=== PATIENT | male | born 1930 | race Caucasian/White ===

== ENCOUNTER 2017-01-30 20:15 | Inpatient (IN) ==
[2017-01-30] MEDS ORDERED: 0.9 % Sodium Chloride 1,000 ML IVC ONE (20:22)
--- NOTE | 2017-01-30 21:00 | Emergency Department Note ---
Disposition Clinical Impression: Upper GI bleed, Anemia, Dehydration, Elevated serum creatinine, Thrombocytopenia, Prostate cancer, Generalized weakness, Transaminitis, Bundle branch block Disposition: Admitted As Inpatient Condition: Critical Referrals: Raúl Owusu MD [Primary Care Provider] - Forms: ED Satisfaction Letter Time of Disposition: 22:23 Weakness HPI - General Chief complaint: ED GI Bleed Stated complaint: weakness/pale Time Seen by Provider: 01/30/17 20:22 Source: patient, family, EMS Nursing Notes Reviewed: Yes Vital Signs Reviewed: Yes - History of Present Illness HPI Narrative: 86-year-old male presents emergency room for weakness. He lives at home with his . Reports to EMS is that the patient had been throwing up some chocolate syrup-appearing vomit for the past few days. The states he has had a poor appetite and has not been eating much. He said decreased bowel movements as well. His been no reports of any chest pain or shortness of breath or abdominal pain. 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 No documented fevers. States he feels more weak than normal. Has not had appetite at all. Pt Subjective Complaint: generalized weakness/fatigue Onset (ago): day(s) Duration: constant Location: generalized Migration: none Pain Severity: none Pain Scale: 0 - Related Data Allergies Allergy/AdvReac Type Severity Reaction Status Date / Time No Known Allergies Allergy Verified 01/30/17 20:24 Constitutional: Reports: weakness. Denies: chills Cardiovascular: Denies: chest pain, palpitations Respiratory: Denies: cough, dyspnea Gastrointestinal: Reports: nausea, vomiting, hematemesis Genitourinary: Denies: dysuria, frequency Musculoskeletal: Reports: as per HPI Integumentary: Reports: as per HPI Neurological: Reports: as per HPI Psychiatric: Reports: as per HPI Endocrine: Reports: as per HPI Hematological/Lymphatic: Reports: as per HPI Past Medical History - Past Medical History Medical history: Reports: other Psychiatric history: Reports: no psych history - Social History Smoking Status: Unknown if ever smoked Smokeless Tobacco Status: No Alcohol use: Reports: none Drug use: Reports: none Physical Exam - General General appearance: alert, in no apparent distress - Head Head exam: atraumatic, normocephalic - Eye Eye exam: Present: other (Pale conjunctiva) - Neck Neck exam: Present: normal inspection - Chest Chest inspection: Present: normal inspection, symmetric chest wall rise - Respiratory Respiratory exam: Present: normal lung sounds bilaterally - Cardiovascular Cardiovascular exam: Present: normal rhythm, tachycardia - Abdominal Exam Abdominal exam: Present: soft, Non-Tender, normal bowel sounds. Absent: tenderness, distention, guarding, rebound - Extremities Exam Extremities exam: Present: normal inspection - Expanded Lower Extremity Exam Hip/Pelvis exam: Present: normal inspection - Back Exam Back exam: Present: normal inspection - Neurological Exam Neurological exam: Present: alert, oriented X3 - Psychiatric Psychiatric exam: Present: normal affect, normal mood - Skin Skin exam: Present: other (Pale color) Course Course Narrative: Patient was found to have what appears to be an upper GI bleed likely from a gastric ulcer. We placed an NG tube down him to see exactly what we are getting out and it was dark colored coffee-ground contents. His hemoglobin was down to 7.3. His platelets were also low. I started him on a Protonix drip. I have ordered 2 units of blood to be transfused. He is not having any abdominal pain. I held off on any imaging of his abdomen. He does have a known history of prostate cancer with bony metastasis per the . I was unable to locate any reports in the computer system about this. He does have some nonspecific LFT elevation. The alkaline phosphatase is elevated which could be seen with advanced prostate metastatic bony destruction. Spoke with the hospitalist team. We will admit to their service. He is hemodynamically stable. I also gave him a liter of fluid. His heart rates running around 100 at this time. He has no elevated white blood cell count. Vital Signs Temperature 97.5 F L 01/30/17 20:17 Pulse Rate 114 01/30/17 20:17 Respiratory Rate 22 01/30/17 20:17 Blood Pressure 132/67 01/30/17 20:17 O2 Sat by Pulse Oximetry 96 01/30/17 20:17 Temperature 97.5 F L 01/30/17 20:17 Pulse Rate 114 01/30/17 20:17 Respiratory Rate 22 01/30/17 20:17 Blood Pressure 132/67 01/30/17 20:17 O2 Sat by Pulse Oximetry 96 01/30/17 20:17 Oxygen Delivery Oxygen Delivery Nasal Cannula Weakness - Medical Records Medical records reviewed: Yes I reviewed the patient's medical records. - Lab Data Lab results reviewed: Yes I reviewed the patient's lab results. Result diagrams: 01/30/17 21:06 01/30/17 21:06 Lab Results 01/30/17 01/30/17 01/30/17 Range/Units 21:06 21:06 21:06 WBC 7.8 (4.3-11.1) K/mcL RBC 2.47 L (4.19-5.50) M/mcL Hgb 7.3 L (12.9-16.9) g/dL Hct 22.7 L (37.5-50.1) % MCV 91.9 (83.0-100.0) fL MCH 29.6 (28.0-33.3) pg MCHC 32.2 (31.6-35.5) g/dL RDW 15.9 H (11.5-14.5) % Plt Count 86 L (140-400) K/mcL MPV 10.0 (9.4-12.4) fL Immature Gran % 16.4 H (0-4) % Seg Neutrophils % 49.9 % Lymphocytes % 21.0 % Monocytes % 11.1 % Eosinophils % 0.6 % Basophils % 1.0 % Neutrophils # 3.9 (1.6-8.9) K/mcL Lymphocytes # 1.6 (0.6-4.6) K/mcL Monocytes # 0.9 (0.0-1.3) K/mcL Eosinophils # 0.1 (0.0-0.6) K/mcL Basophils # 0.1 (0.0-0.2) K/mcL Nucleated RBCs/100 WBC 5.6 H (0) /100 WBC Platelet Estimate Decreased L (Normal) Immature Plt Fraction 2.2 (1.1-6.1) % Polychromasia 1+ A (Not Present) PT (9.4-12.1) Seconds INR APTT (26.0-36.0) Seconds Sodium 142 (136-145) mEq/L Potassium 3.8 (3.5-4.5) mEq/L Chloride 110 H (98-109) mEq/L Carbon Dioxide 19 (19-29) mEq/L BUN 87 H (8-26) mg/dL Creatinine 2.44 H (0.72-1.25) mg/dL Est GFR ( Amer) 31 L (> 60) Est GFR (Non-Af Amer) 25 L (> 60) BUN/Creatinine Ratio 36 H (6-26) Glucose 145 H (70-99) mg/dL Calculated Osmolality 323 H (280-300) Lactic Acid 0.9 (0.5-2.2) mmol/L Calcium 8.3 L (8.6-10.8) mg/dL Magnesium 1.9 (1.6-2.6) mg/dL Total Bilirubin 0.9 (0.2-1.2) mg/dL AST 137 H (5-34) Units/L ALT 98 H (0-55) Units/L Alkaline Phosphatase 543 H (38-126) Units/L Troponin I (0-0.03) ng/mL Serum Total Protein 6.5 (6.0-8.3) g/dL Albumin 2.3 L (3.5-5.0) g/dL Globulin 4.2 H (2.4-3.5) g/dL Albumin/Globulin Ratio 0.5 L (1.1-2.2) Lipase 15 (8-78) Units/L Urine Color (Yellow) Urine Clarity (Clear) Urine pH (5.0-8.0) pH Units Ur Specific Gould (1.010-1.025) Urine Protein (Neg-Trace) mg/dL Urine Glucose (UA) (Normal) mg/dL Urine Ketones (Negative) mg/dL Urine Blood (Negative) Urine Nitrite (Negative) Urine Bilirubin (Negative) Urine Urobilinogen (Normal) mg/dL Ur Leukocyte Esterase (Negative) 01/30/17 01/30/17 01/30/17 Range/Units 21:06 21:06 21:27 WBC (4.3-11.1) K/mcL RBC (4.19-5.50) M/mcL Hgb (12.9-16.9) g/dL Hct (37.5-50.1) % MCV (83.0-100.0) fL MCH (28.0-33.3) pg MCHC (31.6-35.5) g/dL RDW (11.5-14.5) % Plt Count (140-400) K/mcL MPV (9.4-12.4) fL Immature Gran % (0-4) % Seg Neutrophils % % Lymphocytes % % Monocytes % % Eosinophils % % Basophils % % Neutrophils # (1.6-8.9) K/mcL Lymphocytes # (0.6-4.6) K/mcL Monocytes # (0.0-1.3) K/mcL Eosinophils # (0.0-0.6) K/mcL Basophils # (0.0-0.2) K/mcL Nucleated RBCs/100 WBC (0) /100 WBC Platelet Estimate (Normal) Immature Plt Fraction (1.1-6.1) % Polychromasia (Not Present) PT 18.0 H (9.4-12.1) Seconds INR 1.6 APTT 28.3 (26.0-36.0) Seconds Sodium (136-145) mEq/L Potassium (3.5-4.5) mEq/L Chloride (98-109) mEq/L Carbon Dioxide (19-29) mEq/L BUN (8-26) mg/dL Creatinine (0.72-1.25) mg/dL Est GFR ( Amer) (> 60) Est GFR (Non-Af Amer) (> 60) BUN/Creatinine Ratio (6-26) Glucose (70-99) mg/dL Calculated Osmolality (280-300) Lactic Acid (0.5-2.2) mmol/L Calcium (8.6-10.8) mg/dL Magnesium (1.6-2.6) mg/dL Total Bilirubin (0.2-1.2) mg/dL AST (5-34) Units/L ALT (0-55) Units/L Alkaline Phosphatase (38-126) Units/L Troponin I 0.15 H* (0-0.03) ng/mL Serum Total Protein (6.0-8.3) g/dL Albumin (3.5-5.0) g/dL Globulin (2.4-3.5) g/dL Albumin/Globulin Ratio (1.1-2.2) Lipase (8-78) Units/L Urine Color Yellow (Yellow) Urine Clarity Cloudy A (Clear) Urine pH 6.0 (5.0-8.0) pH Units Ur Specific Gould 1.015 (1.010-1.025) Urine Protein 30 H (Neg-Trace) mg/dL Urine Glucose (UA) Normal (Normal) mg/dL Urine Ketones Negative (Negative) mg/dL Urine Blood Trace H (Negative) Urine Nitrite Negative (Negative) Urine Bilirubin Negative (Negative) Urine Urobilinogen Normal (Normal) mg/dL Ur Leukocyte Esterase Large H (Negative) - Radiology Data Radiology results reviewed: Yes I reviewed the patient's radiology results. - EKG Data EKG attestation: Yes I reviewed and interpreted this EKG. EKG results narrative: EKG shows a rate of 111. Sinus tachycardia. Appears to have a left bundle- branch block. OK interval 195. QRS 139. QTC 421. Critical Care Time Critical Care Time: Yes Total Critical Care Time: 40 Attestation: Total critical care time was 40 minutes. Time was spent in medical management as well as fluid resuscitation and anemia requiring a blood transfusion.
[2017-01-30 21:17] LABS: Red Cell Distribution Width 15.9 % (11.5-14.5)
[2017-01-30 21:19] LABS: Basophils # 0.1 K/mcL (0.0-0.2); Eosinophils # 0.1 K/mcL (0.0-0.6); Eosinophils % 0.6 %; Hematocrit 22.7 % (37.5-50.1); Immature Granulocytes % 16.4 % (0-4); Immature Platelets 2.2 % (1.1-6.1); Lymphocytes # 1.6 K/mcL (0.6-4.6); Mean Corpuscular HGB Conc 32.2 g/dL (31.6-35.5); Mean Corpuscular Hemoglobin 29.6 pg (28.0-33.3); Mean Corpuscular Volume 91.9 fL (83.0-100.0); Monocytes # 0.9 K/mcL (0.0-1.3); Monocytes % 11.1 %; Neutrophils # 3.9 K/mcL (1.6-8.9); Nucleated Red Blood Cells 5.6 /100 WBC (0); Red Blood Count 2.47 M/mcL (4.19-5.50); Segmented Neutrophils % 49.9 %
[2017-01-30 21:27] LABS: INR 1.6
[2017-01-30 21:30] LABS: Activated Partial Thrombo Time 28.3 Seconds (26.0-36.0)
[2017-01-30 21:33] LABS: Albumin 2.3 g/dL (3.5-5.0); Albumin/Globulin Ratio 0.5 (1.1-2.2); Bilirubin,Total 0.9 mg/dL (0.2-1.2); Calcium 8.3 mg/dL (8.6-10.8); Globulin 4.2 g/dL (2.4-3.5); Magnesium 1.9 mg/dL (1.6-2.6); Potassium 3.8 mEq/L (3.5-4.5); Total Protein 6.5 g/dL (6.0-8.3)
[2017-01-30 21:48] LABS: Bilirubin,Urine Negative (Negative); Blood,Urine Trace (Negative); Clarity,Urine Cloudy (Clear); Color,Urine Yellow (Yellow); Glucose,Urine (UA) Normal (Normal); Ketones,Urine Negative (Negative); Leukocyte Esterase,Urine Large (Negative); Nitrite,Urine Negative (Negative); Protein,Urine 30 mg/dL (Neg-Trace); Specific Gravity,Urine 1.015 (1.010-1.025); Urobilinogen,Urine Normal (Normal)
[2017-01-30 22:00] LABS: Hemoglobin 7.3 g/dL (12.9-16.9); Platelet Count 86 K/mcL (140-400)
[2017-01-30 22:03] LABS: Polychromasia 1+ (Not Present)
[2017-01-30 22:04] LABS: Platelet Estimate Decreased (Normal)
[2017-01-30 22:04] LABS: Squamous Epithelial Cell,Urine None Seen per lpf (None-Few); WBC,Urine TNTC per hpf (0-3)
[2017-01-30] MEDS ORDERED: Pantoprazole 40 MG VIAL IVP ONE (22:13)
[2017-01-30] MEDS ORDERED: Pantoprazole 40 MG in 0.9 % Sodium Chloride Mini Bag 100 ML IVC SCH (22:15)
[2017-01-30 22:17] LABS: RBC,Urine 0-3 per hpf (0-3)
[2017-01-30 22:18] LABS: Bacteria,Urine Few per hpf (None-Few); Hyaline Casts,Urine Few per lpf (None-Few)
[2017-01-30] MEDS ORDERED: Ringers Solution, Lactated 1,000 ML IVC SCH (23:45)
[2017-01-30] MEDS ORDERED: Naloxone 0.4 MG/ML INJ IVP PRN (23:51)
--- NOTE | 2017-01-30 23:59 | Internal Med History&Physical ---
Date of Encounter: 01/30/17 Time of Encounter: 23:57 Assessment and Plan (1) Upper GI bleed Current visit: Yes Status: Acute trend H/H q6, 2 prbc ordered by the ED, consult GI, protonix gtt, IVF, conservative management for now. Has NGT to low intermittent suction (2) Anemia Current visit: Yes Status: Acute symptomatic anemia. To get pRBC. 2/2 to GI loss. GI assisting Qualifiers: Other causes of anemia: acute posthemorrhagic Qualified Code(s): D62 - Acute posthemorrhagic anemia (3) Prostate cancer Current visit: Yes Status: Acute continue outpatient therapy upon recovery (4) Generalized weakness Current visit: Yes Status: Acute supportive care, treat GIB, transfuse. PT eval when GIB resolve for HHC vs SNF ? Internal Medicine - H&P: HPI Chief complaint: weakness, coffee grounds emesis History of present illness: Mr. Nunez is a 86 year old male with hx of prostate ca on LHRH/casodex, HLN, HTN who presents with 2 days hx of coffee grounds emesis with no improving or worsening factors. He has apparently been gradually weaker in the last 2-3 months but symptoms were more notable 2-3 weeks ago. He denies any blood thinners, NSAIDs or hx of GIB. He lives with and is highly functional at baseline. Past Med Surg Social Fam HX - Past Medical History Medical history: cancer, hypertension, other Psychiatric history: no psych history - Social History Smoking Status: Never smoker Smokeless Tobacco Status: No Alcohol use: none Drug use: none Internal Medicine - H&P: Meds Allergies No Known Allergies Allergy (Verified 01/30/17 20:24) All Systems PM: A 10-system review of systems was performed and is negative for pertinent findings except as documented above in the HPI. Review of systems: ROS 14 point review of systems reviewed as best as possible given presentation. Pertinent positive or negative as per HPI or otherwise reviewed as negative - Constitutional Vitals: Temp Pulse Resp BP Pulse Ox 98.3 F 94 16 133/60 93 01/30/17 23:39 01/30/17 23:39 01/30/17 23:39 01/30/17 23:39 01/30/17 23:39 Exam: General - AAO x 3 Psych - Appropriate affect/speech. No agitation Eyes - CLYDE. Eye lids intact. No scleral icterus ENT - Oral mucosa pink, dentition intact. External ear clear/dry/intact. No thyromegaly Lymphatics - No cervical/inguinal lympadenopathy Neuro - No gross peripheral or central neuro deficits with intact CN 2-12 exam Heart - Sinus. RRR. S1 and S2 present. No added HS/murmurs appreciated. No elevated JVD appreciated. No calf swellings/erythema Lung - Adequate air entry b/l, No crackes/wheezes appreciated GI - NG tube present, Soft, non-tender. No hepatosplenomegaly/ascities. BS+ - No CVA/suprapubic tenderness or palpable bladder distension Skin - Intact. No rash/petechiae/ecchymosis. Warm extremities MSK - Joints with normal ROM. No joint swellings Internal Med - H&P Results - Labs CBC & Chem 7: 01/30/17 21:06 01/30/17 21:06 - VTE Reasons for not Prescribing Prophylaxis: Medical contraindication
[2017-01-31] MEDS: Pantoprazole 40 MG in 0.9 % Sodium Chloride Mini Bag 100 ML IVC SCH ×5 (00:17→21:52)
[2017-01-31 01:59] LABS: Calcium 8.4 mg/dL (8.6-10.8); Potassium 3.7 mEq/L (3.5-4.5)
[2017-01-31] MEDS ORDERED: Haloperidol Lactate 5 MG/ML VIAL ONE (04:28)
[2017-01-31] MEDS: Haloperidol Lactate 5 MG/ML VIAL IVP ONE ×2 (04:40→04:43)
[2017-01-31 08:38] LABS: Hemoglobin 8.7 g/dL (12.9-16.9); Red Cell Distribution Width 15.9 % (11.5-14.5)
[2017-01-31 08:40] LABS: Eosinophils # 0.1 K/mcL (0.0-0.6); Hematocrit 26.7 % (37.5-50.1); Mean Corpuscular HGB Conc 32.6 g/dL (31.6-35.5); Mean Corpuscular Hemoglobin 29.2 pg (28.0-33.3); Mean Corpuscular Volume 89.6 fL (83.0-100.0); Mean Platelet Volume 10.1 fL (9.4-12.4); Nucleated Red Blood Cells 6.5 /100 WBC (0); Red Blood Count 2.98 M/mcL (4.19-5.50)
--- NOTE | 2017-01-31 08:48 | Gastroenterology Consult Note ---
<Vivienne Oneil - Last Filed: 01/31/17 13:45> Date of Encounter: 01/31/17 Time of Encounter: 13:35 - Assessment and plan (1) Upper GI bleed Current Visit: Yes Status: Acute Assessment and plan: hgb 7.3 on admission, 2 units PRBC transfused. EGD to r/o varices, esophagitis, gastritis, duodenitis, PUD, MW tear, tumor, polyp, AVM. NG in place, continue PPI gtt. (2) Anemia Current Visit: Yes Status: Acute Assessment and plan: monitor H & H, transfuse as appropriate. Qualifiers: Anemia type: other cause Other causes of anemia: acute posthemorrhagic Qualified Code(s): D62 - Acute posthemorrhagic anemia (3) Thrombocytopenia Current Visit: Yes Status: Acute Assessment and plan: r/o underlying cirrhosis. US liver (4) Prostate cancer Current Visit: Yes Status: Chronic (5) Transaminitis Current Visit: Yes Status: Acute Assessment and plan: US negative for findings consistent with cirrhosis. Holding on EGD results. Liver w/u ordered. - Time Spent With Patient Total time spent is greater than 50% in coordination of care (as documented) at patient's floor/unit and/or counseling patient: less than 15 minutes GI History of Present Illness - Data of Consult Patient: new to practice Consult date: 01/31/17 Requesting Physician: Komal Isbell MD - Consult Narrative Reason for consult: hematemesis History of present illness: Mr. Nunez is a 86 year old male Patient was found to have what appears to be an upper GI bleed likely from a gastric ulcer. We placed an NG tube down him to see exactly what we are getting out and it was dark colored coffee-ground contents. His hemoglobin was down to 7.3. His platelets were also low. I started him on a Protonix drip. I have ordered 2 units of blood to be transfused. He is not having any abdominal pain. I held off on any imaging of his abdomen. He does have a known history of prostate cancer with bony metastasis per the . I was unable to locate any reports in the computer system about this. He does have some nonspecific LFT elevation. The alkaline phosphatase is elevated which could be seen with advanced prostate metastatic bony destruction. Patient is not a good historian, was not present at the time of my exam. Patient unclear how long he has been vomiting black, denies black stools or blood noted in stools prior to admission. NG remains in place with black drainage noted. Per RN, emptied approximately 400 mls earlier today. Denies abd pain, dysphagia or increase in acid reflux. Colonoscopy: None noted EGD: None noted Past Med Surg Social Fam HX - Past Medical History Medical history: cancer, hypertension, other Psychiatric history: no psych history - Social History Smoking Status: Never smoker Smokeless Tobacco Status: No Alcohol use: none Drug use: none - Gastrointestinal NSAID use: None noted Anticoagulation Use: None noted Number of BM Per Day: qod Gastrointestinal: Present: coffee ground emesis - Constitutional Constitutional: fatigue - EENT Eyes: as per HPI Ears: Present: as per HPI Nose, mouth and throat: Present: as per HPI - Cardiovascular Cardiovascular ROS: Present: as per HPI - Respiratory Respiratory IM: Present: as per HPI - Neurological ROS Neurological GI: Present: weakness - Hematologic/Lymphatic Hematologic/Lymphatic pediatric: Present: as per HPI - Musculoskeletal Musculoskeletal ROS GI: Present: as per HPI - Integumentary Integumentary GI: Present: as per HPI - Psychiatric ROS Psychiatric GI: Present: as per HPI - Endocrine Endocrine IM: Present: as per HPI - Constitutional Vitals: Temp Pulse Resp BP Pulse Ox 97.3 F L 95 22 144/67 93 01/31/17 07:23 01/31/17 07:23 01/31/17 07:23 01/31/17 07:23 01/31/17 07:23 General appearance: Present: cooperative, A&O X 3, pleasant, no acute distress - Head Head exam: Present: atraumatic, normocephalic - Eye Eye exam: Present: normal appearance, sclera anicteric - ENT ENT exam: Present: mucous membranes moist - Neck Neck exam general surgery: Present: normal inspection, trachea midline - Respiratory Respiratory exam: Present: CTAB - Cardiovascular Cardiovascular exam: Present: RRR, +S1, +S2 - GI/Abdominal GI/Abdominal exam: Present: normal bowel sounds, soft, no peritoneal signs - Rectal Rectal exam: Present: deferred - Extremities Exam Extremities exam: Present: warm - Neurological Exam Neurological exam: Present: no focal deficits - Psychiatric Psychiatric exam: Present: normal affect, normal mood - Skin Skin exam: Present: dry, intact, normal color, warm Results - Labs CBC & Chem 7: 01/31/17 07:52 01/31/17 01:08 Labs: Last Result Calcium 8.4 mg/dL (8.6-10.8) L 01/31/17 01:08 Troponin I 0.18 ng/mL (0-0.03) H* 01/31/17 01:08 Entire Visit Hgb 7.3 g/dL (12.9-16.9) L 01/30/17 21:06 Hct 22.7 % (37.5-50.1) L 01/30/17 21:06 PT 18.0 Seconds (9.4-12.1) H 01/30/17 21:06 Total Bilirubin 0.9 mg/dL (0.2-1.2) 01/30/17 21:06 AST 137 Units/L (5-34) H 01/30/17 21:06 ALT 98 Units/L (0-55) H 01/30/17 21:06 Lipase 15 Units/L (8-78) 01/30/17 21:06 - ABG ABG results: PT/INR, D-dimer PT 18.0 Seconds (9.4-12.1) H 01/30/17 21:06 - Impressions Impressions [facility] X-Ray 01/31/17 01:53 IMPRESSION: Nasogastric tube in good position, with tip in the mid gastric body. D/ / Cody Torres MD / Cody Torres MD Interpreting Provider: Cody Torres MD Consult Discharge Plan - Plan Referrals: Raúl Owusu MD [Primary Care Provider] - (sent web request on 01-31-17 @ [id number]) <Jordyn Rojas - Last Filed: 01/31/17 16:43> Date of Encounter: 01/31/17 Time of Encounter: 14:00 - Time Spent With Patient Total time spent is greater than 50% in coordination of care (as documented) at patient's floor/unit and/or counseling patient: GI History of Present Illness - Data of Consult Requesting Physician: Komal Isbell MD - Consult Narrative History of present illness: Mr. Nunez is a 86 year old male - Constitutional Vitals: Temp Pulse Resp BP Pulse Ox 98.2 F 104 20 142/70 95 01/31/17 15:58 01/31/17 15:58 01/31/17 15:58 01/31/17 15:58 01/31/17 15:58 Results - Labs CBC & Chem 7: 01/31/17 14:40 01/31/17 01:08 Labs: Last Result Calcium 8.4 mg/dL (8.6-10.8) L 01/31/17 01:08 Ferritin 9450 ng/ml (22-275) H 01/31/17 14:40 Troponin I 0.14 ng/mL (0-0.03) H* 01/31/17 14:40 Gastric Occult Blood Positive (Negative) A 01/30/17 21:56 Entire Visit Hgb 9.1 g/dL (12.9-16.9) L 01/31/17 14:40 Hct 28.0 % (37.5-50.1) L 01/31/17 14:40 PT 18.0 Seconds (9.4-12.1) H 01/30/17 21:06 Ferritin 9450 ng/ml (22-275) H 01/31/17 14:40 Total Bilirubin 0.9 mg/dL (0.2-1.2) 01/31/17 07:52 AST 107 Units/L (5-34) H 01/31/17 07:52 ALT 92 Units/L (0-55) H 01/31/17 07:52 Lipase 15 Units/L (8-78) 01/30/17 21:06 - ABG ABG results: PT/INR, D-dimer PT 18.0 Seconds (9.4-12.1) H 01/30/17 21:06 - Impressions Impressions KUB X-Ray 01/31/17 01:53 IMPRESSION: Nasogastric tube in good position, with tip in the mid gastric body. D/ / Cody Torres MD / Cody Torres MD Interpreting Provider: Cody Torres MD Liver Ultrasound 01/31/17 10:00 IMPRESSION: 1. Normal size and contour of the liver suggests against cirrhosis. However, the liver is diffusely echogenic in appearance, which may suggest either diffuse fatty infiltration or chronic liver disease. If cirrhosis remains of clinical concern, consider a liver biopsy. 2. Cholelithiasis, without sonographic evidence of cholecystitis. 3. Mild nonspecific right hydronephrosis without demonstrable cause. 4. Normal sonographic appearance of the common bile duct and pancreas. D/ : / 01/31/2017 11:40:48 Davin Junior MD / [facility] Interpreting Provider: Davin Junior MD - Attending Attestation I examined this patient and my medical decision-making was reviewed with the Resident Physician. I agree with the documented findings, disposition and treatment plan as described except to the extent set forth below. Patient with coffee-ground emesis and melena currently NG output is dark green in color. Recommend d/c the NG follow H&H and EGD in the morning can start on clear liquid
[2017-01-31 08:55] LABS: Platelet Count 78 K/mcL (140-400)
--- NOTE | 2017-01-31 09:01 | Internal Med Progress Note ---
Date of Encounter: 01/31/17 Time of Encounter: 08:58 - Assessment and plan (1) Upper GI bleed Current Visit: Yes Status: Acute Assessment and plan: Hb 7.3..was given 2 U PRBC cont close monitoring of Hb / Hct Q6hr GI consulted Scheduled for EGD today cont IV fluids - change to NS @ 100 ml/hr cont PPI gtt (2) Anemia Current Visit: Yes Status: Acute Assessment and plan: due to GI bleed Qualifiers: Anemia type: other cause Other causes of anemia: acute posthemorrhagic Qualified Code(s): D62 - Acute posthemorrhagic anemia (3) Elevated troponin I level Current Visit: Yes Status: Acute Assessment and plan: Mostly due to demand ischemia will get EKG now Troponin started trending now Cont monitoring Troponin will get 2 D Echo no further work up needed Held ASA due to GI bleed (4) Acute kidney failure Current Visit: Yes Status: Acute Assessment and plan: due to dehydration / hypovolemia with GI bleed cont IV hydration Qualifiers: Qualified Code(s): N17.9 - Acute kidney failure, unspecified (5) Thrombocytopenia Current Visit: Yes Status: Acute Assessment and plan: could be due to his Prostate CA with possible mets cont close monitoring (6) Acute hyperactive delirium due to multiple etiologies Current Visit: Yes Status: Acute Assessment and plan: Multifactorial - could be due to underline dementia + Metabolic encephalopathy with NILAM / GI bleed + possible metastatic disease did mention about his fogetfullness in last 2-3 months also she did mention his urologist did bone scan ? vs PET scan recently and mentioned metastasis all over the body so will try to get medical records from Dr. Pelayo Urologist from [facility] Also will obtain medical records from his regular PCP Depending on those reports, if needed will get CT of head with no contrast (7) Prostate cancer Current Visit: Yes Status: Chronic Assessment and plan: will get records from Urologist (8) DVT prophylaxis Current Visit: Yes Status: Acute Assessment and plan: SCD's only - Subjective Interval history: Mr. Nunez is a 86 year old male with hx of prostate ca on LHRH/casodex, HLN, HTN who presents with 2 days hx of coffee grounds emesis with no improving. He has apparently been gradually weaker, confused, rapidly declining in the last 2- 3 months but symptoms were more notable 2-3 weeks ago. Denied any blood thinners, NSAIDs or hx of GIB. He lives with and is highly functional at baseline. Currently pt has NG tube placed in, still has coffee ground secretions through NG tube. Pt is alert, awake and oriented to self only. seems confused and demented - Constitutional Vitals: Temp Pulse Resp BP Pulse Ox 97.3 F L 91 22 144/67 93 01/31/17 07:23 01/31/17 08:44 01/31/17 07:23 01/31/17 07:23 01/31/17 07:23 General appearance: Present: A&O X 1, no acute distress - Head Head exam: Present: atraumatic, normal inspection - Neck Neck exam general surgery: Present: normal inspection, supple - Respiratory Respiratory exam: Present: decreased breath sounds. Absent: rales, respiratory distress, rhonchi, wheezes - Cardiovascular Cardiovascular exam: Present: RRR, +S1, +S2. Absent: systolic murmur - GI/Abdominal GI/Abdominal exam: Present: normal bowel sounds, soft. Absent: distended, guarding, rebound, rigid, tenderness - Extremities Exam Extremities exam: Absent: calf tenderness, pedal edema, tenderness - Neurological Exam Neurological exam: Present: altered Internal Medicine: Result - Labs CBC & Chem 7: 01/31/17 07:52 01/31/17 01:08 Labs: Short CBC 01/31/17 Range/Units 07:52 WBC 7.4 (4.3-11.1) K/mcL Hgb 8.7 L (12.9-16.9) g/dL Hct 26.7 L (37.5-50.1) % Plt Count 78 L (140-400) K/mcL BMP 01/31/17 01:08 Sodium 144 Potassium 3.7 Chloride 113 H Carbon Dioxide 19 BUN 82 H Creatinine 2.15 H Glucose 125 H Calcium 8.4 L Cardiac Enzymes 01/31/17 Range/Units 01:08 Troponin I 0.18 H* (0-0.03) ng/mL - ABG Interpretation ABG results: PT/INR, D-dimer PT 18.0 Seconds (9.4-12.1) H 01/30/17 21:06 - Impressions Impressions KUB X-Ray 01/31/17 01:53 IMPRESSION: Nasogastric tube in good position, with tip in the mid gastric body. D/ / Cody Torres MD / Cody Torres MD Interpreting Provider: Cody Torres MD - VTE Reasons for not Prescribing Prophylaxis: Medical contraindication Consult Discharge Plan - Plan Referrals: Raúl Owusu MD [Primary Care Provider] -
[2017-01-31 09:03] LABS: Lymphocytes # 1.8 K/mcL (0.6-4.6); Monocytes # 0.4 K/mcL (0.0-1.3); Neutrophils # 4.3 K/mcL (1.6-8.9)
[2017-01-31 09:08] LABS: Platelet Estimate Slight Decrease (Normal); Polychromasia 1+ (Not Present)
[2017-01-31 12:19] LABS: Albumin 2.3 g/dL (3.5-5.0); Albumin/Globulin Ratio 0.5 (1.1-2.2); Bilirubin,Direct 0.4 mg/dL (0.0-0.5); Bilirubin,Indirect 0.5 mg/dL (0.0-1.2); Bilirubin,Total 0.9 mg/dL (0.2-1.2); Globulin 4.2 g/dL (2.4-3.5); Total Protein 6.5 g/dL (6.0-8.3)
[2017-01-31] MEDS: 0.9 % Sodium Chloride 1,000 ML IVC SCH ×2 (14:11→22:16)
[2017-01-31 15:07] LABS: Hemoglobin 9.1 g/dL (12.9-16.9)
--- NOTE | 2017-01-31 15:29 | Electrocardiograph Report ---
[address] [address] Test Date: 2017-01-30 Pat Name: Jareth Nunez Department: 104 Room: [facility] Gender: M Manager Life: YARITZA : 1930 Requested By: Lex Davenport Order Number: [id number] Reading MD: Lucero Wylie Measurements Intervals [place] Rate: 111 P: 44 [place]: 195 QRS: -22 QRSD: 139 T: 114 QT: 355 QTc: 421 Interpretive Statements SINUS TACHYCARDIA Left bundle branch block Electronically Signed On 01-31-2017 15:28:03 EDT by Lucero Wylie
--- NOTE | 2017-01-31 15:39 | Electrocardiograph Report ---
[place] [address] Test Date: 2017-01-31 Pat Name: Jareth Nunez Department: 110 Room: 04 Gender: M Vulnerability Assessment Analyst: BISI : 1930 Requested By: Sharif Perez Order Number: [id number] Reading MD: Lucero Wylie Measurements Intervals [place] Rate: 101 P: 74 [place]: 205 QRS: -46 QRSD: 148 T: 130 QT: 381 QTc: 439 Interpretive Statements SINUS TACHYCARDIA MARKED LEFT AXIS DEVIATION LEFT BUNDLE BRANCH BLOCK Electronically Signed On 01-31-2017 15:37:19 EDT by Lucero Wylie
[2017-01-31 15:41] LABS: Hepatitis B Surface Antigen Nonreactive (Nonreactive)
[2017-01-31] MEDS: *HR* LORazepam 0.5 MG TABLET PO PRN ×2 (17:24→21:58)
[2017-01-31] MEDS: *HR* Acetaminophen w/Cod 300-30 mg 1 TAB TABLET PO PRN (20:37)
[2017-01-31 21:13] LABS: Hematocrit 28.6 % (37.5-50.1)
[2017-01-31] MEDS: Ondansetron 4 MG/2 ML VIAL IVP PRN (21:52)
[2017-02-01] MEDS: 0.9 % Sodium Chloride 1,000 ML IVC SCH ×4 (00:07→10:37)
[2017-02-01] MEDS: Pantoprazole 40 MG in 0.9 % Sodium Chloride Mini Bag 100 ML IVC SCH ×3 (01:16→09:09)
[2017-02-01] MEDS ORDERED: Baclofen 10 MG TABLET PO PRN (03:01)
[2017-02-01 04:33] LABS: Red Cell Distribution Width 16.1 % (11.5-14.5)
[2017-02-01 04:35] LABS: Hematocrit 27.7 % (37.5-50.1); Immature Platelets 2.5 % (1.1-6.1); Mean Corpuscular HGB Conc 32.5 g/dL (31.6-35.5); Mean Corpuscular Hemoglobin 29.2 pg (28.0-33.3); Mean Corpuscular Volume 89.9 fL (83.0-100.0); Mean Platelet Volume 9.9 fL (9.4-12.4); Nucleated Red Blood Cells 6.4 /100 WBC (0); Red Blood Count 3.08 M/mcL (4.19-5.50)
[2017-02-01 04:38] LABS: INR 1.5; Prothrombin Time 16.5 Seconds (9.4-12.1)
[2017-02-01 04:39] LABS: Platelet Count 79 K/mcL (140-400)
[2017-02-01 04:46] LABS: Alanine Aminotransferase 68 Units/L (0-55); Albumin 2.3 g/dL (3.5-5.0); Albumin/Globulin Ratio 0.6 (1.1-2.2); Alkaline Phosphatase 546 Units/L (38-126); Aspartate Amino Transferase 61 Units/L (5-34); BUN/Creatinine Ratio 36 (6-26); Bilirubin,Total 0.9 mg/dL (0.2-1.2); Calcium 8.6 mg/dL (8.6-10.8); Carbon Dioxide 21 mEq/L (19-29); Chloride 112 mEq/L (98-109); Globulin 4.1 g/dL (2.4-3.5); Glucose 114 mg/dL (70-99); Osmolality,Calculated 309 (280-300); Potassium 2.9 mEq/L (3.5-4.5); Sodium 143 mEq/L (136-145); Total Protein 6.4 g/dL (6.0-8.3); eGFR For African Americans > 60 (> 60); eGFR For Non-African Americans 51 (> 60)
[2017-02-01 04:48] LABS: Blood Urea Nitrogen 48 mg/dL (8-26)
[2017-02-01 05:03] LABS: Lymphocytes # 1.4 K/mcL (0.6-4.6); Monocytes # 0.4 K/mcL (0.0-1.3); Neutrophils # 4.6 K/mcL (1.6-8.9)
[2017-02-01 05:04] LABS: Platelet Estimate Decreased (Normal)
[2017-02-01] MEDS ORDERED: *HR* Metoprolol 5 MG/5 ML VIAL IVP ONE ×4 (05:12→05:36)
[2017-02-01] MEDS ORDERED: 0.9 % Sodium Chloride 500 ML IVC ONE ×2 (06:03→06:29)
[2017-02-01 10:17] LABS: Hepatitis A Antibody IgM Nonreactive (Nonreactive); Hepatitis B Core IgM Nonreactive (Nonreactive); Hepatitis C Virus Antibody Nonreactive (Nonreactive)
--- NOTE | 2017-02-01 10:27 | Internal Med Progress Note ---
Date of Encounter: 02/01/17 Time of Encounter: 10:20 - Assessment and plan (1) Atrial fibrillation with RVR Current Visit: Yes Status: Acute Assessment and plan: Triggered by NSTEMI and Severe anemia cont Cadrizem gtt.. rate is still not well controlled due to his NSTEMI, he may get benefit with Amiodarone gtt, will consult cardiology for further eval 2 D Echo from y/d - LVEF normal, Indeterminate diastolic function. atypicla septal motion with BBB Held ASA / Anticoag due to GI bleed (2) Elevated troponin I level Current Visit: Yes Status: Acute Assessment and plan: Mostly due to demand ischemia EKG from y/d NSR with complete LBBB ( chronic ?? ) Troponin started trending now reviewed 2 D Echo Held ASA due to GI bleed Card consulted (3) Upper GI bleed Current Visit: Yes Status: Acute Assessment and plan: Hb improved to 9.0 2 U PRBC cont close monitoring of Hb / Hct GI consulted Scheduled for EGD today - which may post pone due to his A fib with RVR cont IV fluids - NS @ 100 ml/hr cont PPI gtt (4) Anemia Current Visit: Yes Status: Acute Assessment and plan: due to GI bleed Qualifiers: Anemia type: other cause Other causes of anemia: acute posthemorrhagic Qualified Code(s): D62 - Acute posthemorrhagic anemia (5) Acute respiratory failure with hypoxia Current Visit: Yes Status: Acute Assessment and plan: Due to anemia and deconditioning will get stat CXR too will place him on Duoneb Q4hr KISHORE (6) Acute kidney failure Current Visit: Yes Status: Acute Assessment and plan: due to dehydration / hypovolemia with GI bleed cont IV hydration Qualifiers: Qualified Code(s): N17.9 - Acute kidney failure, unspecified (7) Thrombocytopenia Current Visit: Yes Status: Acute Assessment and plan: could be due to his Prostate CA with possible mets cont close monitoring (8) Acute hyperactive delirium due to multiple etiologies Current Visit: Yes Status: Acute Assessment and plan: Multifactorial - could be due to underline dementia + Metabolic encephalopathy with NILAM / GI bleed + possible metastatic disease did mention about his forget fullness in last 2-3 months also she did mention his urologist did bone scan recently and mentioned metastasis all over the body Spoke to Urologist Dr. 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 Pelayo Urologist from [facility] Also will obtain medical records from his regular PCP (9) Prostate cancer Current Visit: Yes Status: Chronic Assessment and plan: will get records from Urologist (10) DVT prophylaxis Current Visit: Yes Status: Acute Assessment and plan: SCD's only - Subjective Interval history: Mr. Nunez is a 86 year old male with hx of prostate ca on LHRH/casodex, HLN, HTN who presents with 2 days hx of coffee grounds emesis with no improving. He has apparently been gradually weaker, confused, rapidly declining in the last 2- 3 months but symptoms were more notable 2-3 weeks ago. Denied any blood thinners, NSAIDs or hx of GIB. He lives with and is highly functional at baseline. NG tube d/c d y/d. Had one episode coffee ground emesis last night. Now pt is more alert, awake and Oriented to place, person and self. Denied any CP . Still on venturi mask. Pt went into A fib this morning with RVR. As per he did have an episode of A fib / Hr fluctuations in 2011 when he was in ICU. - Constitutional Vitals: Temp Pulse Resp BP Pulse Ox 97.9 F 126 20 123/83 96 02/01/17 10:16 02/01/17 10:16 02/01/17 10:16 02/01/17 10:16 02/01/17 10:16 General appearance: Present: A&O X 2, mild distress, answers questions appropriately - Head Head exam: Present: atraumatic, normal inspection - Neck Neck exam general surgery: Present: supple. Absent: lymphadenopathy, thyromegaly - Respiratory Respiratory exam: Present: decreased breath sounds, respiratory distress, wheezes, tachypnea. Absent: rales, rhonchi - Cardiovascular Cardiovascular exam: Present: irregular rhythm, +S1, +S2, tachycardia - GI/Abdominal GI/Abdominal exam: Present: normal bowel sounds, soft. Absent: rebound, rigid, tenderness - Extremities Exam Extremities exam: Present: pedal edema. Absent: calf tenderness, tenderness Internal Medicine: Result - Labs CBC & Chem 7: 02/01/17 04:03 02/01/17 04:03 Labs: Short CBC 01/31/17 01/31/17 02/01/17 Range/Units 14:40 20:50 04:03 WBC 7.2 (4.3-11.1) K/mcL Hgb 9.1 L 9.0 L 9.0 L (12.9-16.9) g/dL Hct 28.0 L 28.6 L 27.7 L (37.5-50.1) % Plt Count 79 L (140-400) K/mcL Neutrophils # 4.6 (1.6-8.9) K/mcL BMP 02/01/17 04:03 Sodium 143 Potassium 2.9 L Chloride 112 H Carbon Dioxide 21 BUN 48 H D Creatinine 1.34 H Glucose 114 H Calcium 8.6 Cardiac Enzymes 01/31/17 01/31/17 Range/Units 14:40 20:50 Troponin I 0.14 H* 0.10 H* (0-0.03) ng/mL Liver Function 01/31/17 02/01/17 Range/Units 07:52 04:03 Total Bilirubin 0.9 0.9 (0.2-1.2) mg/dL Direct Bilirubin 0.4 (0.0-0.5) mg/dL AST 107 H 61 H (5-34) Units/L ALT 92 H 68 H (0-55) Units/L Alkaline Phosphatase 511 H 546 H (38-126) Units/L Albumin 2.3 L 2.3 L (3.5-5.0) g/dL - ABG Interpretation ABG results: PT/INR, D-dimer PT 16.5 Seconds (9.4-12.1) H 02/01/17 04:03 - Impressions Impressions Liver Ultrasound 01/31/17 10:00 IMPRESSION: 1. Normal size and contour of the liver suggests against cirrhosis. However, the liver is diffusely echogenic in appearance, which may suggest either diffuse fatty infiltration or chronic liver disease. If cirrhosis remains of clinical concern, consider a liver biopsy. 2. Cholelithiasis, without sonographic evidence of cholecystitis. 3. Mild nonspecific right hydronephrosis without demonstrable cause. 4. Normal sonographic appearance of the common bile duct and pancreas. D/ /31/2017 11:40:48 Davin Junior MD / [facility] Interpreting Provider: Davin Junior MD - VTE Reasons for not Prescribing Prophylaxis: Medical contraindication Documentation of Mechanical Device: Intermittent pneumatic compression device Consult Discharge Plan - Plan Referrals: Raúl Owusu MD [Primary Care Provider] - 02/07/17 1:15 pm ()
--- NOTE | 2017-02-01 11:06 | Cardiology Consult Note ---
Date of Encounter: 02/01/17 Time of Encounter: 11:45 Assessment and Plan (1) Atrial fibrillation with RVR Current Visit: Yes Status: Acute Patient with known history of atrial fibrillation. Was previously on Coumadin per medical record but not recently Currently the patient is hemodynamically stable. He has had some hypotension today but this is in the setting of GI bleed. Hypotension has resolved. currently he is alert and hemodynamically stable. Recommendations: Resume cardizem gtt with goal rat of < 100. Continue fluid resuscitation and blood transfusion as needed. Replete potassium. Patient dose have CHADSVASC of 4 but would not recommend any anticoagulation at this time given his GI bleed. (2) Elevated troponin Current Visit: Yes Status: Acute in the setting of symptomatic anemia,NILAM, and Afib with RVR. Ongoing GI bleed. Likely demand ischemia. TTE was poor study but grossly LVEF appeared normal. Would recommend medical management at this time. Do not recommend any invasive procedures at this time. (3) LBBB (left bundle branch block) Current Visit: Yes Status: Chronic (4) CAD (coronary artery disease) Current Visit: Yes Status: Acute patient last had LHC in 2011 which revealed: Left Anterior Descending Artery - There was a 50 to 60% discrete ostial stenosis in the proximal left anterior descending artery. There was a 60% discrete stenosis in the proximal left anterior descending artery. Left Circumflex Artery - There was a 50% discrete stenosis in the proximal left circumflex artery. Right Coronary Artery - The right coronary artery was dominant to the posterior circulation. There was a 30% discrete stenosis in the mid right coronary artery. Impression: Moderate two vessel coronary artery disease. 50 to 60% ostial stenosis and 60% stenosis in the proximal left anterior descending artery. 50% stenosis in the proximal left circumflex artery. The left ventricular ejection fraction was 65%. The overall left ventricular systolic function was normal. Recommend resuming ASA after GI bleed has resolved and Ok with GI. Can resume statin when able to take PO medications again. Qualifiers: Qualified Code(s): I25.10 - Atherosclerotic heart disease of [place] coronary artery without angina pectoris (5) GI bleed Current Visit: Yes Status: Acute management per GI and primary team. Qualifiers: Qualified Code(s): K92.2 - Gastrointestinal hemorrhage, unspecified (6) Thrombocytopenia Current Visit: Yes Status: Acute etiology unclear. PAtient had bone mets on most recent bone scan per patients spouse. May be secondary to METS or GI bleed. (7) Acute blood loss anemia Current Visit: Yes Status: Acute secondary to GI losses. Has received 2 units PRBC. primary team is managing. 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 Discussion w patient/family: The assessment and plan as outlined above was discussed with the patient and/or family members who expressed understanding and agreement. All questions were answered. Thank you for involving us in the care of your patient. Please call with any questions. History of Present Illness Consult date: 02/01/17 Requesting physician: Sharif Perez Consult reason: Afib with RVR. elevsted troponin Chief complaint: coffee ground emesis. History of present illness: Mr. Nunez is a 86 year old male with pmh of Atrial fibrillation ( not on Anticoagulation), LBB, moderate CAD, and metastatic prostate cancer that was admitted to [facility] on 01/30/17. Patient states that he has not been feeling well over the last 2 weeks. He complains of fatigue and malaise. He states that he also developed coffee ground emesis and so he came to the hospital. He states he has not had any further episodes of bloody emesis or melana since admission. HE denies any chest pain or discomfort. He denies dizziness,syncope or presyncope. He denies palpitations but states that he dose have a racing heart rate. Admits to fatigue. He denies cough or wheeze. He dose complain of lower right sided back pain and states that this is chronic from his sciatica.His is also present and states that the patient has seemed to decline over the past two weeks with fatigue and has also had some intermittent confusion. She dose agree with the above history that the patient gave. No further complaints or concerns at this time. Past Med Surg Social Fam HX - Past Medical History Medical history: arthritis, cancer, COPD, hyperlipidemia, hypertension, malignancy, other Psychiatric history: no psych history - Social History Smoking Status: Never smoker Smokeless Tobacco Status: No Alcohol use: none Drug use: none Medications and Allergies Acetaminophen w/Cod 300-30 mg [Tylenol w/Codeine #3] 1 tab PO HS 01/31/17 [ History] Albuterol Sulfate [Proair Hfa] 2 puff IH Q4H PRN 01/31/17 [History] Aspirin [Lo-Dose Aspirin EC] 81 mg PO DAILY 01/31/17 [History] Beclomethasone Diprop 80mcg [Qvar 80 mcg] 1 puff IH BID 01/31/17 [History] Bicalutamide [Casodex] 50 mg PO DAILY 01/31/17 [History] Calcium Carbonate/Vitamin D3 [Calcium 600-Vit D3 200 Tablet] 1 tab PO DAILY 07/19 [History] Cetirizine HCl [All Day Allergy] 10 mg PO DAILY 01/31/17 [History] Cholecalciferol (D-3) [Vitamin D] 1,000 unit PO DAILY 01/31/17 [History] Diltiazem HCl [Diltiazem 24Hr Cd] 180 mg PO DAILY 01/31/17 [History] Flaxseed Oil [Sultana-3 Flaxseed Oil] 1,000 mg PO DAILY 01/31/17 [History] Fluticasone Propionate Nasal [Flonase] 1 spray NS BID 01/31/17 [History] LORazepam [Ativan] 0.5 mg PO BID 01/31/17 [History] Latanoprost [Xalatan] 1 drop OP QPM 01/31/17 [History] Levothyroxine [Synthroid] 75 mcg PO 0630 01/31/17 [History] Multivitamin [Multi-Day Vitamins] 1 tab PO DAILY 01/31/17 [History] Sultana-3/Dha/Epa/Fish Oil [Fish Oil 500 mg Softgel] 500 mg PO DAILY 01/31/17 [ History] Omeprazole [PriLOSEC] 20 mg PO DAILY 01/31/17 [History] Simvastatin [Zocor] 20 mg PO HS 01/31/17 [History] Tamsulosin [Flomax] 0.4 mg PO DAILY 01/31/17 [History] Trospium Chloride 20 mg PO BID 01/31/17 [History] Ubidecarenone/Vit E Acetate [Co Q-10 100 mg Softgel] 100 mg PO DAILY 01/31/17 [ History] Allergies No Known Allergies Allergy (Verified 01/30/17 20:24) All Systems Review: A 10-system review of systems was performed and is negative for pertinent findings except as documented above in the HPI. - Constitutional Constitutional: malaise, weakness, weight loss, no weight gain - EENT Eyes: no blurred vision, no loss of vision - Cardiovascular Cardiovascular: as per HPI - Respiratory Respiratory: no cough, no dyspnea, no hemoptysis, no wheezing - Gastrointestinal Gastrointestinal: coffee ground emesis, no abdominal pain, no constipation, no diarrhea, no dysphagia, no hematemesis, no hematochezia - Genitourinary Genitourinary: other (has chronic incontinence), no dysuria, no hematuria - Musculoskeletal Musculoskeletal: no abnormal gait, no muscle weakness, no myalgias - Integumentary Integumentary: no erythema, no rash - Neurological Neurological: memory loss, no focal weakness - Psychiatric Psychiatric: no anxiety, no depression - Hematological/Lymphatic Hematologic/Lymphatic: no easy bleeding, no easy bruising Physical Examination Vital Signs, Last 4 Hours Temp Pulse Resp BP Pulse Ox 02/01/17 10:16 97.9 F 126 20 123/83 96 02/01/17 10:00 136 96/88 93 02/01/17 09:30 140 98/72 91 02/01/17 09:22 140 78/60 02/01/17 09:17 105 77/62 02/01/17 09:00 124 109/88 02/01/17 08:16 152 92/60 02/01/17 07:45 139 96/80 02/01/17 07:40 163 100/53 General: Conversant, No Apparent Distress, Other (alert and orientated) HEENT: Atraumatic, Normocephaly, Mucus Membranes Moist Neck: No JVD, Normal carotid pulses Cardiac: No Murmur, Other (irregular irregulate. Rate is 130s-150s while in the room. ) Lungs: Normal Breath Sounds, No Wheeze, Rales, Rhonchi Neuro: Alert and responsive, No focal deficits noted Abdomen: Soft, Non-Tender Skin: No rashes noted on visualized skin, Other (pale) Musculoskeletal: No Chest Wall Tenderness Extremities: No Clubbing, No Cyanosis, No Edema Results 02/01/17 04:03 02/01/17 04:03 Lab Results 01/31/17 01/31/17 01/31/17 07:52 14:40 14:40 WBC Hgb 9.1 L Hct 28.0 L Plt Count INR Sodium Potassium Chloride Carbon Dioxide BUN Creatinine Glucose Calcium Total Bilirubin 0.9 AST 107 H ALT 92 H Alkaline Phosphatase 511 H Troponin I 0.14 H* 01/31/17 01/31/17 02/01/17 20:50 20:50 04:03 WBC 7.2 Hgb 9.0 L 9.0 L Hct 28.6 L 27.7 L Plt Count 79 L INR Sodium Potassium Chloride Carbon Dioxide BUN Creatinine Glucose Calcium Total Bilirubin AST ALT Alkaline Phosphatase Troponin I 0.10 H* 02/01/17 02/01/17 04:03 04:03 WBC Hgb Hct Plt Count INR 1.5 Sodium 143 Potassium 2.9 L Chloride 112 H Carbon Dioxide 21 BUN 48 H D Creatinine 1.34 H Glucose 114 H Calcium 8.6 Total Bilirubin 0.9 AST 61 H ALT 68 H Alkaline Phosphatase 546 H Troponin I - Imaging and Cardiology Chest Xray: report reviewed, image reviewed Echo: report reviewed - EKG Interpretation EKG results cardiology: personally reviewed Consult Discharge Plan - Plan Referrals: Raúl Owusu MD [Primary Care Provider] - 02/07/17 1:15 pm ()
[2017-02-01] MEDS: *HR* LORazepam 0.5 MG TABLET PO PRN ×2 (15:22→21:13)
[2017-02-01] MEDS: D5% in 0.45% NACL w KCl 20 MEQ/1,000 ML MLS IVC SCH (16:04)
[2017-02-01] MEDS: Pantoprazole 40 MG VIAL IVP SCH (16:04)
[2017-02-01 17:44] LABS: BUN/Creatinine Ratio 32 (6-26); Blood Urea Nitrogen 40 mg/dL (8-26); Calcium 8.3 mg/dL (8.6-10.8); Carbon Dioxide 23 mEq/L (19-29); Chloride 113 mEq/L (98-109); Glucose 130 mg/dL (70-99); Magnesium 1.3 mg/dL (1.6-2.6); Osmolality,Calculated 306 (280-300); Potassium 3.3 mEq/L (3.5-4.5); Sodium 142 mEq/L (136-145); eGFR For African Americans > 60 (> 60); eGFR For Non-African Americans 55 (> 60)
[2017-02-01] MEDS: *HR* Acetaminophen w/Cod 300-30 mg 1 TAB TABLET PO PRN (21:13)
[2017-02-01] MEDS: Ondansetron 4 MG/2 ML VIAL IVP PRN (21:13)
--- NOTE | 2017-02-01 22:53 | Electrocardiograph Report ---
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
--- NOTE | 2017-02-01 22:57 | Electrocardiograph Report ---
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
[2017-02-02 05:32] LABS: Hematocrit 26.7 % (37.5-50.1)
[2017-02-02 05:34] LABS: Hemoglobin 8.6 g/dL (12.9-16.9); Immature Platelets 3.4 % (1.1-6.1); Mean Corpuscular HGB Conc 32.2 g/dL (31.6-35.5); Mean Corpuscular Hemoglobin 29.1 pg (28.0-33.3); Mean Corpuscular Volume 90.2 fL (83.0-100.0); Mean Platelet Volume 10.1 fL (9.4-12.4); Nucleated Red Blood Cells 8.1 /100 WBC (0); Red Blood Count 2.96 M/mcL (4.19-5.50)
[2017-02-02 05:47] LABS: Alanine Aminotransferase 68 Units/L (0-55); Albumin 2.4 g/dL (3.5-5.0); Albumin/Globulin Ratio 0.6 (1.1-2.2); Alkaline Phosphatase 647 Units/L (38-126); Aspartate Amino Transferase 99 Units/L (5-34); BUN/Creatinine Ratio 28 (6-26); Bilirubin,Total 0.7 mg/dL (0.2-1.2); Blood Urea Nitrogen 33 mg/dL (8-26); Calcium 8.6 mg/dL (8.6-10.8); Carbon Dioxide 24 mEq/L (19-29); Chloride 111 mEq/L (98-109); Globulin 3.9 g/dL (2.4-3.5); Glucose 115 mg/dL (70-99); Osmolality,Calculated 300 (280-300); Potassium 3.5 mEq/L (3.5-4.5); Sodium 141 mEq/L (136-145); Total Protein 6.3 g/dL (6.0-8.3); eGFR For African Americans > 60 (> 60); eGFR For Non-African Americans 59 (> 60)
[2017-02-02 05:56] LABS: Platelet Count 71 K/mcL (140-400)
[2017-02-02] MEDS: D5% in 0.45% NACL w KCl 20 MEQ/1,000 ML MLS IVC SCH (05:56)
[2017-02-02] MEDS: Pantoprazole 40 MG VIAL IVP SCH ×2 (05:57→17:37)
[2017-02-02 06:10] LABS: Lymphocytes # 1.1 K/mcL (0.6-4.6); Monocytes # 0.4 K/mcL (0.0-1.3); Neutrophils # 3.5 K/mcL (1.6-8.9)
[2017-02-02 06:11] LABS: Platelet Estimate Decreased (Normal); Toxic Granulation Present (Not Present)
--- NOTE | 2017-02-02 09:18 | Cardiology Progress Note ---
Date of Encounter: 02/02/17 Time of Encounter: 09:16 Assessment and Plan (1) Atrial fibrillation with RVR Current Visit: Yes Status: Acute Patient with known history of atrial fibrillation. Was previously on Coumadin per medical record but not recently Currently the patient is hemodynamically stable. Heart rate is better controlled. Average rate on 12 hour tele has been 87. Currently on cardizem drip at 10mg/hour. hypotension from yesterday has resolved. Recommendations: We will transition patient from cardizem drip to to PO. Continue fluid resuscitation and blood transfusion as needed. Patient dose have CHADSVASC of 4 but would not recommend any anticoagulation at this time given his GI bleed. (2) Elevated troponin Current Visit: Yes Status: Acute In the setting of symptomatic anemia,NILAM, and Afib with RVR. Ongoing GI bleed. Likely demand ischemia. TTE was poor study but grossly LVEF appeared normal. Patient continues to be chest renny free. Would recommend medical management at this time. Do not recommend any invasive procedures at this time. (3) LBBB (left bundle branch block) Current Visit: Yes Status: Chronic (4) CAD (coronary artery disease) Current Visit: Yes Status: Acute patient last had LHC in 2011 which revealed: Left Anterior Descending Artery - There was a 50 to 60% discrete ostial stenosis in the proximal left anterior descending artery. There was a 60% discrete stenosis in the proximal left anterior descending artery. Left Circumflex Artery - There was a 50% discrete stenosis in the proximal left circumflex artery. Right Coronary Artery - The right coronary artery was dominant to the posterior circulation. There was a 30% discrete stenosis in the mid right coronary artery. Impression: Moderate two vessel coronary artery disease. 50 to 60% ostial stenosis and 60% stenosis in the proximal left anterior descending artery. 50% stenosis in the proximal left circumflex artery. The left ventricular ejection fraction was 65%. The overall left ventricular systolic function was normal. Recommend resuming ASA after GI bleed has resolved and Ok with GI. Can resume statin when able to take PO medications again. Qualifiers: Qualified Code(s): I25.10 - Atherosclerotic heart disease of [place] coronary artery without angina pectoris (5) GI bleed Current Visit: Yes Status: Acute management per GI and primary team. Planned EGD in AM per staff. Qualifiers: Qualified Code(s): K92.2 - Gastrointestinal hemorrhage, unspecified (6) Thrombocytopenia Current Visit: Yes Status: Acute etiology unclear. stable. PAtient had bone mets on most recent bone scan per patients spouse. May be secondary to METS or GI bleed. (7) Acute blood loss anemia Current Visit: Yes Status: Acute secondary to GI losses. Has received 2 units PRBC. mild trend down in Hg this AM. No active bleeding at this time. primary team is managing. 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 Discussion w patient/family: The assessment and plan as outlined above was discussed with the patient and/or family members who expressed understanding and agreement. All questions were answered. Thank you for involving us in the care of your patient. Please call with any questions. Subjective Principal diagnosis: Atrial firillation Interval history: No major evetns overnight. PAtient denies any further emesis but admits to dry heaves. He denies any melena or hematochezia. He statees his hip pain is well controlled at this time. He denies any difficulty breathing He has no further complaints or concerns at this time. His is also present and states he has not had an complaints overnigh and appears to be much more comfortable at this time. Objective Vital Signs, Last 4 Hours Temp Pulse Resp BP Pulse Ox 02/02/17 08:34 98.1 F 87 21 115/58 95 02/02/17 08:00 85 02/02/17 06:00 88 120/53 General: Conversant, No Apparent Distress HEENT: Atraumatic, Normocephaly, Mucus Membranes Moist Neck: No JVD, Normal carotid pulses Cardiac: Normal S1 and S2, No Murmur, Other (patietn ws in sinus rhythm with intermittent afib. ) Lungs: Normal Breath Sounds, No Wheeze, Rales, Rhonchi Neuro: Alert and responsive, No focal deficits noted Abdomen: Soft, Non-Tender Skin: No rashes noted on visualized skin Musculoskeletal: No Chest Wall Tenderness Extremities: No Clubbing, No Cyanosis, No Edema Results 02/02/17 04:20 02/02/17 04:20 Lab Results 02/01/17 02/02/17 02/02/17 16:58 04:20 04:20 WBC 5.3 Hgb 8.6 L Hct 26.7 L Plt Count 71 L Sodium 142 141 Potassium 3.3 L 3.5 Chloride 113 H 111 H Carbon Dioxide 23 24 BUN 40 H 33 H Creatinine 1.25 1.18 Glucose 130 H 115 H Calcium 8.3 L 8.6 Magnesium 1.3 L Total Bilirubin 0.7 AST 99 H ALT 68 H Alkaline Phosphatase 647 H - VTE Reasons for not Prescribing Prophylaxis: Medical contraindication Documentation of Mechanical Device: Intermittent pneumatic compression device Consult Discharge Plan - Plan Referrals: Raúl Owusu MD [Primary Care Provider] - 02/07/17 1:15 pm ()
[2017-02-02] MEDS: dilTIAZem HCl 60 MG TABLET PO SCH ×3 (10:18→17:37)
--- NOTE | 2017-02-02 16:01 | Internal Med Progress Note ---
Date of Encounter: 02/02/17 Time of Encounter: 12:30 - Assessment and plan (1) Atrial fibrillation with RVR Current Visit: Yes Status: Acute Assessment and plan: Triggered by NSTEMI and Severe anemia pt did have h/o A fib in the past Converted to NSR y/d Will switch him to PO Cardizem Card is on board 2 D Echo from y/d - LVEF normal, Indeterminate diastolic function. atypicla septal motion with BBB Held ASA / Anticoag due to GI bleed (2) Elevated troponin I level Current Visit: Yes Status: Acute Assessment and plan: Mostly due to demand ischemia EKG from y/d NSR with complete LBBB ( chronic ?? ) Troponin started trending now reviewed 2 D Echo Held ASA due to GI bleed No further work up needed (3) Upper GI bleed Current Visit: Yes Status: Acute Assessment and plan: Hb stab;e at 8.6 s/p 2 U PRBC cont close monitoring of Hb / Hct GI consulted Scheduled for EGD in AM Switched to Protonix 40mg IV BID (4) Anemia Current Visit: Yes Status: Acute Assessment and plan: due to GI bleed s/p 2 U PRBC stable Hb now Qualifiers: Anemia type: other cause Other causes of anemia: acute posthemorrhagic Qualified Code(s): D62 - Acute posthemorrhagic anemia (5) Acute respiratory failure with hypoxia Current Visit: Yes Status: Acute Assessment and plan: Due to anemia and deconditioning Reviewed CXR - mild small pleural effusion will d/c IVF no need of Lasix now Cont him on Duoneb Q4hr KISHORE (6) Acute kidney failure Current Visit: Yes Status: Acute Assessment and plan: due to dehydration / hypovolemia with GI bleed Improved Qualifiers: Qualified Code(s): N17.9 - Acute kidney failure, unspecified (7) Thrombocytopenia Current Visit: Yes Status: Acute Assessment and plan: could be due to his Prostate CA with possible mets cont close monitoring (8) Acute hyperactive delirium due to multiple etiologies Current Visit: Yes Status: Acute Assessment and plan: Multifactorial - could be due to underline dementia + Metabolic encephalopathy with NILAM / GI bleed + possible metastatic disease did mention about his forget fullness in last 2-3 months also she did mention his urologist did bone scan recently and mentioned metastasis all over the body Spoke to Urologist Dr. 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 They do not want to see any Heme Onc here. (9) Prostate cancer Current Visit: Yes Status: Chronic (10) DVT prophylaxis Current Visit: Yes Status: Acute Assessment and plan: SCD's only - Subjective Interval history: Mr. Nunez is a 86 year old male with hx of prostate ca on LHRH/casodex, HLN, HTN who presents with 2 days hx of coffee grounds emesis with no improving. He has apparently been gradually weaker, confused, rapidly declining in the last 2- 3 months but symptoms were more notable 2-3 weeks ago. Denied any blood thinners, NSAIDs or hx of GIB. He lives with and is highly functional at baseline. NG tube d/c d 2 days ago. No more hemetemesis. Tolerating PO intake well. Now pt is more alert, awake and Oriented to place, person and self. Denied any CP . Still on venturi mask at 4 lit O2.. Pt converted into NSR y/d afternoon while he was cardizem gtt. - Constitutional Vitals: Temp Pulse Resp BP Pulse Ox 97.8 F 90 18 123/63 97 02/02/17 11:33 02/02/17 12:00 02/02/17 11:33 02/02/17 11:33 02/02/17 11:33 General appearance: Present: A&O X 3, answers questions appropriately - Head Head exam: Present: atraumatic, normal inspection - Neck Neck exam general surgery: Present: supple. Absent: tenderness - Respiratory Respiratory exam: Present: decreased breath sounds, respiratory distress (mild) , wheezes. Absent: rhonchi - Cardiovascular Cardiovascular exam: Present: RRR, +S1, +S2. Absent: systolic murmur - GI/Abdominal GI/Abdominal exam: Present: normal bowel sounds, soft. Absent: rebound, rigid, tenderness - Neurological Exam Neurological exam: Present: alert, oriented X3 - Psychiatric Psychiatric exam: Present: normal affect, normal mood Internal Medicine: Result - Labs CBC & Chem 7: 02/02/17 04:20 02/02/17 04:20 Labs: Short CBC 02/02/17 Range/Units 04:20 WBC 5.3 (4.3-11.1) K/mcL Hgb 8.6 L (12.9-16.9) g/dL Hct 26.7 L (37.5-50.1) % Plt Count 71 L (140-400) K/mcL Neutrophils # 3.5 (1.6-8.9) K/mcL BMP 02/01/17 02/02/17 16:58 04:20 Sodium 142 141 Potassium 3.3 L 3.5 Chloride 113 H 111 H Carbon Dioxide 23 24 BUN 40 H 33 H Creatinine 1.25 1.18 Glucose 130 H 115 H Calcium 8.3 L 8.6 Liver Function 02/02/17 Range/Units 04:20 Total Bilirubin 0.7 (0.2-1.2) mg/dL AST 99 H (5-34) Units/L ALT 68 H (0-55) Units/L Alkaline Phosphatase 647 H (38-126) Units/L Albumin 2.4 L (3.5-5.0) g/dL - ABG Interpretation ABG results: PT/INR, D-dimer PT 16.5 Seconds (9.4-12.1) H 02/01/17 04:03 - VTE Reasons for not Prescribing Prophylaxis: Medical contraindication Documentation of Mechanical Device: Intermittent pneumatic compression device Consult Discharge Plan - Plan Referrals: Raúl Owusu MD [Primary Care Provider] - 02/07/17 1:15 pm ()
[2017-02-02] MEDS: *HR* LORazepam 0.5 MG TABLET PO PRN (22:08)
[2017-02-02] MEDS: *HR* Acetaminophen w/Cod 300-30 mg 1 TAB TABLET PO PRN (22:14)
[2017-02-03] MEDS: dilTIAZem HCl 60 MG TABLET PO SCH ×2 (00:38→04:57)
[2017-02-03] MEDS: Pantoprazole 40 MG VIAL IVP SCH (04:57)
[2017-02-03 06:26] LABS: Eosinophils # 0.1 K/mcL (0.0-0.6); Hematocrit 26.6 % (37.5-50.1); Hemoglobin 8.4 g/dL (12.9-16.9); Immature Platelets 4.1 % (1.1-6.1); Mean Corpuscular HGB Conc 31.6 g/dL (31.6-35.5); Mean Corpuscular Hemoglobin 28.4 pg (28.0-33.3); Mean Corpuscular Volume 89.9 fL (83.0-100.0); Nucleated Red Blood Cells 4.6 /100 WBC (0); Red Blood Count 2.96 M/mcL (4.19-5.50); Red Cell Distribution Width 15.8 % (11.5-14.5)
[2017-02-03 06:41] LABS: BUN/Creatinine Ratio 23 (6-26); Blood Urea Nitrogen 24 mg/dL (8-26); Calcium 8.3 mg/dL (8.6-10.8); Carbon Dioxide 22 mEq/L (19-29); Chloride 109 mEq/L (98-109); Glucose 95 mg/dL (70-99); Osmolality,Calculated 292 (280-300); Potassium 3.5 mEq/L (3.5-4.5); Sodium 139 mEq/L (136-145); eGFR For African Americans > 60 (> 60); eGFR For Non-African Americans > 60 (> 60)
[2017-02-03 06:47] LABS: Platelet Count 62 K/mcL (140-400)
[2017-02-03 07:31] LABS: Alpha-1-Antitrypsin 311 mg/dL (90-200)
[2017-02-03 07:32] LABS: Ceruloplasmin 41 mg/dL (17-54)
[2017-02-03 07:39] LABS: ANA IgG by ELISA NONE DETECTED (None Detected); F-Actin (sm muscle) Ab IgG 14 Units (0-19)
[2017-02-03] MEDS ORDERED: Magnesium Sulfate 2 GM in D5% in Water 100 ML IVPB ONE (08:32)
--- NOTE | 2017-02-03 08:58 | Cardiology Progress Note ---
Date of Encounter: 02/03/17 Time of Encounter: 08:56 Assessment and Plan (1) Atrial fibrillation with RVR Current Visit: Yes Status: Acute Improved. Cardizem gtt was weaned off overnight. Average rate on telemetry is 91 currently in sinus rhythm. Recommendations: Transition to long acting cardizem. 240mg daily. CHADSVASC score is 4. However given recent GI bleed would not recommend at this time. Can be addressed at follow up visit. Cardiology will sign off at this time. Please call with any additional questions. Thank you for the consultation. (2) Elevated troponin Current Visit: Yes Status: Acute In the setting of symptomatic anemia,NILAM, and Afib with RVR. Ongoing GI bleed. Likely demand ischemia. TTE was poor study but grossly LVEF appeared normal. Patient continues to be chest pain free. Would recommend medical management at this time. Do not recommend any invasive procedures at this time. Cardiac rehab not indicated. (3) LBBB (left bundle branch block) Current Visit: Yes Status: Chronic (4) CAD (coronary artery disease) Current Visit: Yes Status: Acute patient last had LHC in 2011 which revealed: Left Anterior Descending Artery - There was a 50 to 60% discrete ostial stenosis in the proximal left anterior descending artery. There was a 60% discrete stenosis in the proximal left anterior descending artery. Left Circumflex Artery - There was a 50% discrete stenosis in the proximal left circumflex artery. Right Coronary Artery - The right coronary artery was dominant to the posterior circulation. There was a 30% discrete stenosis in the mid right coronary artery. Impression: Moderate two vessel coronary artery disease. 50 to 60% ostial stenosis and 60% stenosis in the proximal left anterior descending artery. 50% stenosis in the proximal left circumflex artery. The left ventricular ejection fraction was 65%. The overall left ventricular systolic function was normal. Recommend resuming ASA after GI bleed has resolved and Ok with GI. Can resume statin when able to take PO medications again. Qualifiers: Qualified Code(s): I25.10 - Atherosclerotic heart disease of [place] coronary artery without angina pectoris (5) GI bleed Current Visit: Yes Status: Acute management per GI and primary team. Planned EGD in AM per staff. Qualifiers: Qualified Code(s): K92.2 - Gastrointestinal hemorrhage, unspecified (6) Thrombocytopenia Current Visit: Yes Status: Acute etiology unclear. stable. PAtient had bone mets on most recent bone scan per patients spouse. May be secondary to METS or GI bleed. (7) Acute blood loss anemia Current Visit: Yes Status: Acute secondary to GI losses. Has received 2 units PRBC. mild trend down in Hg this AM. No active bleeding at this time. primary team is managing. (8) Hypomagnesemia Current Visit: Yes Status: Acute replete (9) Prostate cancer metastatic to bone Current Visit: Yes Status: Acute per patients spouse, patient has prostate cancer with metastasis to the bone. Discussion w patient/family: The assessment and plan as outlined above was discussed with the patient and/or family members who expressed understanding and agreement. All questions were answered. Thank you for involving us in the care of your patient. Please call with any questions. Subjective Principal diagnosis: Atrial firillation Interval history: No major events overnight. Patient denies any chest pain, dizziness, or syncope. He states that his fatigue has improved somewhat. He has no further complaints or concerns at this time. Objective Vital Signs, Last 4 Hours Temp Pulse Resp BP Pulse Ox 02/03/17 07:19 89 02/03/17 07:01 98.6 F 88 18 109/49 95 02/03/17 05:05 98.2 F 88 16 126/62 93 General: Conversant, No Apparent Distress HEENT: Atraumatic, Normocephaly, Mucus Membranes Moist Neck: No JVD Cardiac: Reg Rate and Rhythm (currently in sinus rhythm), Normal S1 and S2, No Murmur Lungs: Normal Breath Sounds, No Wheeze, Rales, Rhonchi Neuro: Alert and responsive, No focal deficits noted Abdomen: Soft, Non-Tender Skin: No rashes noted on visualized skin Musculoskeletal: No Chest Wall Tenderness Extremities: No Clubbing, No Cyanosis, No Edema, Normal Pulses Results 02/03/17 05:58 02/03/17 05:58 Lab Results 02/03/17 02/03/17 05:58 05:58 WBC 7.9 Hgb 8.4 L Hct 26.6 L Plt Count 62 L Sodium 139 Potassium 3.5 Chloride 109 Carbon Dioxide 22 BUN 24 Creatinine 1.03 Glucose 95 Calcium 8.3 L Magnesium 1.0 L - VTE Reasons for not Prescribing Prophylaxis: Medical contraindication Documentation of Mechanical Device: Graduated compression elastic hosiery Consult Discharge Plan - Plan Referrals: Raúl Owusu MD [Primary Care Provider] - 02/07/17 1:15 pm ()
--- NOTE | 2017-02-03 09:07 | Anesthesia Evaluation PreOp ---
Date of Encounter: 02/03/17 Time of Encounter: 09:05 - Past History Planned Operation: EGD Cardiac History: HTN, Arrhythmia (Afib), Other (Cardiac Clearance 02/01/2017 : Chrnic LBBB. I examined this patient and my medical decision-making was reviewed with the Resident Physician. I agree with the documented findings, disposition and treatment plan as described except to the extent set forth below. AF with RVR in setting of GI bleed. Treat with IV cardizem, convert to po when able. 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: Denies Any Significant HX Other Medical History: Other (Metastatic Prostate CA, Thrombocytopenia) Anesthesia History: No Prior Anesthetic Complications Alcohol Use: none Drug use: none Medications and Allergies Acetaminophen w/Cod 300-30 mg [Tylenol w/Codeine #3] 1 tab PO HS 01/31/17 [ History] Albuterol Sulfate [Proair Hfa] 2 puff IH Q4H PRN 01/31/17 [History] Aspirin [Lo-Dose Aspirin EC] 81 mg PO DAILY 01/31/17 [History] Beclomethasone Diprop 80mcg [Qvar 80 mcg] 1 puff IH BID 01/31/17 [History] Bicalutamide [Casodex] 50 mg PO DAILY 01/31/17 [History] Calcium Carbonate/Vitamin D3 [Calcium 600-Vit D3 200 Tablet] 1 tab PO DAILY 07/19 [History] Cetirizine HCl [All Day Allergy] 10 mg PO DAILY 01/31/17 [History] Cholecalciferol (D-3) [Vitamin D] 1,000 unit PO DAILY 01/31/17 [History] Diltiazem HCl [Diltiazem 24Hr Cd] 180 mg PO DAILY 01/31/17 [History] Flaxseed Oil [[place]-3 Flaxseed Oil] 1,000 mg PO DAILY 01/31/17 [History] Fluticasone Propionate Nasal [Flonase] 1 spray NS BID 01/31/17 [History] LORazepam [Ativan] 0.5 mg PO BID 01/31/17 [History] Latanoprost [Xalatan] 1 drop OP QPM 01/31/17 [History] Levothyroxine [Synthroid] 75 mcg PO 0630 01/31/17 [History] Multivitamin [Multi-Day Vitamins] 1 tab PO DAILY 01/31/17 [History] [place]-3/Dha/Epa/Fish Oil [Fish Oil 500 mg Softgel] 500 mg PO DAILY 01/31/17 [ History] Omeprazole [PriLOSEC] 20 mg PO DAILY 01/31/17 [History] Simvastatin [Zocor] 20 mg PO HS 01/31/17 [History] Tamsulosin [Flomax] 0.4 mg PO DAILY 01/31/17 [History] Trospium Chloride 20 mg PO BID 01/31/17 [History] Ubidecarenone/Vit E Acetate [Co Q-10 100 mg Softgel] 100 mg PO DAILY 01/31/17 [ History] Allergies No Known Allergies Allergy (Verified 01/30/17 20:24) - Meds/Allergy Pre-op Review Medications Reviewed: Yes Allergies Reviewed: Yes Beta Blockers on Current Med List: No Anesthesia Results - Labs 02/03/17 05:58 02/03/17 05:58 01/31/2017 echocardiogram Impressions: Technically sub-optimal due to poor echocardiographic windows. Many LV segments were not well visualized. Overall, LVEF appears grossly normal. Indeterminate diastolic function. Grossly normal right ventricular structure and function. Atypical septal motion consistent with bundle branch block. No evidence of pulmonary hypertension. No obvious valvular dysfunction. Consider a repeat study with Definity contrast for better evaluation of segmental and overall LV function if clinically appropriate. - Imaging EKG: report reviewed (PROBABLY ATRIAL FIBRILLATION MARKED LEFT AXIS DEVIATION LEFT BUNDLE BRANCH BLOCK) Anesthesia Exam O2 Sat Weight 94.8 kg Weight 199.9 kg O2 Sat by Pulse Oximetry 95 O2 Sat by Pulse Oximetry 93 O2 Sat by Pulse Oximetry 95 O2 Sat by Pulse Oximetry 96 O2 Sat by Pulse Oximetry 97 O2 Sat by Pulse Oximetry 95 Vital Signs Temp Pulse Resp BP Pulse Ox 97.5 F L 114 22 132/67 96 01/30/17 20:17 01/30/17 20:17 01/30/17 20:17 01/30/17 20:17 01/30/17 20:17 Vital Signs/O2 Sat, Most Current Temp Pulse Resp BP Pulse Ox 98.6 F 89 18 109/49 95 02/03/17 07:01 02/03/17 07:19 02/03/17 07:01 02/03/17 07:01 02/03/17 07:01 Height: 6' Weight: 208# NPO (# of Hours): > 8 hrs Pain Scale: 0 Pain Scale Used: Numeric (1 - 10) - HEENT Pupil (Motor): Pupils equal, EOMI Mallampati: III Teeth: Poor dentition Oral Opening: Greater than 3 - IT DISASTER RECOVERY MANAGER IT DISASTER RECOVERY MANAGER Motor: Normal RUE, Normal LUE, Normal RLE, Normal LLE, Normal Face IT DISASTER RECOVERY MANAGER Sensory: Normal: RUE, LUE, RLE, LLE, Face - Cardiac Rhythm: Regular Murmur: None JVD: No Carotid Bruit: No - Pulmonary Breath Sounds: bilateral Clear Respiratory Effort: Symmetrical Anesthesia Assess/Plan ASA Score: 4 Modified Paterson Scale for Level of Consciousness: Cooperative, oriented, and tranquil Anesthetic Plan: MAC Autologous Blood: Yes Monitoring Plan: Standard Monitors Recovery Plan: Other
[2017-02-03 09:19] LABS: Lymphocytes # 1.6 K/mcL (0.6-4.6); Neutrophils # 4.6 K/mcL (1.6-8.9)
[2017-02-03 09:42] LABS: Dohle Bodies Present (Not Present); Toxic Granulation Present (Not Present)
[2017-02-03 09:43] LABS: Platelet Estimate Decreased (Normal); Polychromasia 1+ (Not Present)
[2017-02-03] MEDS ORDERED: 0.9 % Sodium Chloride 1,000 ML IVC SCH (09:45)
--- NOTE | 2017-02-03 10:29 | Internal Med Progress Note ---
Date of Encounter: 02/03/17 Time of Encounter: 10:29 - Assessment and plan (1) Atrial fibrillation with RVR Current Visit: Yes Status: Acute Assessment and plan: Triggered by NSTEMI and Severe anemia pt did have h/o A fib in the past Converted to NSR on 02/01/17 Now rate controlled on PO Cardizem at 240mg Card is on board 2 D Echo - LVEF normal, Indeterminate diastolic function. atypicla septal motion with BBB Held ASA / Anticoag due to GI bleed (2) Elevated troponin I level Current Visit: Yes Status: Acute Assessment and plan: Mostly due to demand ischemia Troponins trended down Reviewed 2 D Echo Held ASA due to GI bleed No further work up needed (3) Upper GI bleed Current Visit: Yes Status: Acute Assessment and plan: Hb stab;e at 8.6 s/p 2 U PRBC cont close monitoring of Hb / Hct s/p EGD today showed normal esophagus..mild gastritis showed will switch to PO Protonix when pt is more awake (4) Anemia Current Visit: Yes Status: Acute Assessment and plan: due to GI bleed s/p 2 U PRBC stable Hb now Qualifiers: Anemia type: other cause Other causes of anemia: acute posthemorrhagic Qualified Code(s): D62 - Acute posthemorrhagic anemia (5) Acute respiratory failure with hypoxia Current Visit: Yes Status: Acute Assessment and plan: Due to anemia and deconditioning Reviewed CXR - mild small pleural effusion no need of Lasix now Cont him on Duoneb Q4hr KISHORE try to wean him off the O2 as he tolerates (6) Acute kidney failure Current Visit: Yes Status: Acute Assessment and plan: due to dehydration / hypovolemia with GI bleed Improved Qualifiers: Qualified Code(s): N17.9 - Acute kidney failure, unspecified (7) Thrombocytopenia Current Visit: Yes Status: Acute Assessment and plan: could be due to his Prostate CA with possible mets cont close monitoring (8) Acute hyperactive delirium due to multiple etiologies Current Visit: Yes Status: Acute Assessment and plan: Multifactorial - could be due to underline dementia + Metabolic encephalopathy with NILAM / GI bleed Resolved did mention about his forget fullness in last 2-3 months . (9) Prostate cancer Current Visit: Yes Status: Chronic Assessment and plan: Spoke to Urologist Dr. Pelayo, who did mention he did have multiple osteolytic lesion from skull to ankle Today pt's did requested for Heme Onc evaluation.. to discuss about further plan of care (10) DVT prophylaxis Current Visit: Yes Status: Acute Assessment and plan: SCD's only - Subjective Interval history: Mr. Nunez is a 86 year old male with hx of prostate ca on LHRH/casodex, HLN, HTN who presents with 2 days hx of coffee grounds emesis with no improving. He has apparently been gradually weaker, confused, rapidly declining in the last 2- 3 months but symptoms were more notable 2-3 weeks ago. Denied any blood thinners, NSAIDs or hx of GIB. He lives with and is highly functional at baseline. Pt was admitted here for GI bleed with Hematemesis. He also went into A fib a day after admission, which got converted in NSR in 24 hrs with Cardizem. He just came back from EGD. No acute events over night. Tolerating PO intake well. No more vomitings / hematemeisis - Constitutional Vitals: Temp Pulse Resp BP Pulse Ox 98.7 F 86 16 130/62 97 02/03/17 09:28 02/03/17 09:28 02/03/17 09:28 02/03/17 09:28 02/03/17 09:28 General appearance: Present: A&O X 3 (sedative now), answers questions appropriately - Head Head exam: Present: atraumatic, normal inspection - Respiratory Respiratory exam: Present: decreased breath sounds, rales (mild), wheezes. Absent: respiratory distress - Cardiovascular Cardiovascular exam: Present: RRR, +S1, +S2. Absent: systolic murmur - GI/Abdominal GI/Abdominal exam: Present: normal bowel sounds, soft. Absent: distended, firm , rebound, rigid - Extremities Exam Extremities exam: Present: pedal edema. Absent: calf tenderness, tenderness - Psychiatric Psychiatric exam: Present: normal affect, normal mood Internal Medicine: Result - Labs CBC & Chem 7: 02/03/17 05:58 02/03/17 05:58 Labs: Short CBC 02/03/17 Range/Units 05:58 WBC 7.9 (4.3-11.1) K/mcL Hgb 8.4 L (12.9-16.9) g/dL Hct 26.6 L (37.5-50.1) % Plt Count 62 L (140-400) K/mcL Neutrophils # 4.6 (1.6-8.9) K/mcL BMP 02/03/17 05:58 Sodium 139 Potassium 3.5 Chloride 109 Carbon Dioxide 22 BUN 24 Creatinine 1.03 Glucose 95 Calcium 8.3 L - ABG Interpretation ABG results: PT/INR, D-dimer PT 16.5 Seconds (9.4-12.1) H 02/01/17 04:03 - VTE Reasons for not Prescribing Prophylaxis: Medical contraindication Documentation of Mechanical Device: Graduated compression elastic hosiery Consult Discharge Plan - Plan Referrals: Raúl Owusu MD [Primary Care Provider] - 02/07/17 1:15 pm ()
[2017-02-03] MEDS: Magnesium Sulfate 2 GM in D5% in Water 100 ML IVPB SCH ×2 (12:32→12:33)
[2017-02-03] MEDS: Diltiazem CD (24hr) 240 MG CAPSULE PO SCH (12:33)
[2017-02-03 13:09] LABS: Myeloperoxidase Ab 10 AU/mL (0-19); Serine Protease-3 Antibody 0 AU/mL (0-19)
[2017-02-03] MEDS: *HR* Acetaminophen w/Cod 300-30 mg 1 TAB TABLET PO PRN (13:26)
[2017-02-03] MEDS: *HR* LORazepam 0.5 MG TABLET PO PRN ×2 (13:26→22:07)
--- NOTE | 2017-02-03 13:30 | Oncology Inp Consult Note ---
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 I explained my concerns with Jareth and his , along with my recommendations to perform a bone marrow biopsy to rule out this possibility. However they declined this option since she would like to avoid semi invasive/ invasive procedures, unless that it's something that could affect his management. She expressed that even if there was a associated diagnosis of a blood malignancy ( leukemia, MDS), he and she would not be interested in pursuing treatment ( focusing in comfort under hospice care in that situation). - At this time it's not entirely clear what is the status of his prostate cancer. I would recommend re staging scans: including CT chest, abdomen and pelvis, whole body bone scan, serum PSA, serum testosterone levels. - I would recommend to resume bicalutamide 50 mg PO daily. - I would hold off on lupron for now, but consider to resume during next office visit, once his performance status/status of co morbidities have improved. - Please request a palliative care consult for symptom management and to address goals of care. At this time she is interested in home care, and if his condition further deteriorates without response to treatment , she would like to consider transition to hospice. - We discussed the options of management for patients with CRPC and acceptable PS. As discussed with patient and , if above work up is consistent with castration resistant prostate cancer, I would consider to start palliative therapy with Ketoconazole in view of his very poor PS. -Upon discharge, please arrange for follow up appointment with medical oncology ( at [facility]). RECOMMENDATIONS: - CT chest/abdomen/pelvis - Whole body bone scan - Serum PSA - Serum testosterone. - Check SPEP, UPEP, Free light chains in serum (FLC), serum immunofixatation ( SIFE), haptoglobin, LDH - Please obtain official report from [place] for Bone scan ( completed in mid 2016). - Palliative care consult. (2) Thrombocytopenia Status: Acute Assessment and plan: As described above, differential diagnosis included drug related, ITP, metastatic bone marrow involvement from prostate cancer or another malignancy such as MDS/AML, or multiple myeloma. - As per our discussion, bone marrow biopsy was declined. - Continue supportive management. check CBC daily, transfuse for platelet count less than 20K (3) Upper GI bleed Status: Acute Assessment and plan: GI on board. s/p EGD that revealed gastritis. - Management as per primary team. - Data of Consult Requesting Physician: Komal Isbell MD Primary Care Provider: Raúl Owusu MD - Consult Narrative Reason for consult: management of metastatic prostate cancer, thrombocytopenia History of present illness: Mr. Nunez is a 86 year old male with history of Afib ( off anticoagulation), hyperlipidemia, metastatic prostate cancer, hypothyroidism presenting to the ED with generalized weakness and upper GIB. His GIB was managed with transfusion of blood products, he underwent an EGD today that showed findings consistent with gastritis ( but not active bleeding), not evidence of esophageal varices. He is also being evaluated by cardiology due to Afib with RVR ( he was off anticoagulation even prior to admission). He was also noticed to present transaminitis, low albumin and mildly elevated INR, with liver US that showed normal size, but increase echogenicity that could be suggestive of chronic liver disease or fatty liver infiltration. He was unable to provide history since he has been confused lately (even more after being sedated for endoscopic procedure). He was seen with his at the bedside, who is the main caregiver. His reports that Jareth was diagnosed with prostate cancer in November 2015. The symptoms leading to the diagnosis included urinary complaints, elevated PSA. A needle core biopsy on november 10, 2015 revealed the presence of temi 9/10 prostate cancer with associated perineural involvement. Initially he was seen here at [facility] by Dr. Wolf, but after being diagnosed, his care was transfer [facility], under the care of Dr. Pelayo ( urologist). As per his , at that time Jareth refused the option of chemotherapy, radiation therapy or surgery, but was agreeable to receive treatment with lupron and bicalutomide. He was started on March 2016 in lupron 22.5 mg every 3 months and bicalutamide 50 mg daily. She reports that a bone scan completed approximately in january 2016 showed evidence of diffuse bone lesions ( as per prior notes consistent with " lytic lesions" although not original report available). Apparently he experienced improvement of his urinary symptoms, correlated with improvement of his PSA down from 73 to 3 after therapy had been started: this was suggestive of castration sensitive prostate cancer ( although the reported caracteriztics of his bone lesions is not typical for prostate cancer). Later on, PSA check on 10/04/16 showed a value of 23, what would be suggestive of castration resistant prostate cancer, although she reports that not re staging scans have been ordered since the initial diagnosis in 2015. he reports that he did not receive his last shot of lupron (he declined it since he felt sick following the last one a few months ago). She reports that he has been compliant with his daily dose of bicalutamide ( until the current admission). His reports that she is the HCP and POA and that he has expressed in the past that he would not like aggressive / invasive treatments such as chemotherapy, radiation therapy. He is currently full code, but she would like to readdress the status of his code status if his condition deteriorates. She reports that until a couple of months ago he was feeling relatively well, but since then he has declined having some memory issues and generalized weakness. His symptoms got worse around 2 weeks ago. He has been experiencing pain in the right hip and urinary incontinence. At the time of the visit, he is recovering from the recent EDG, still mildly sedated, but able to answer questions. He denies pain during the visit, and was oriented x 3. Past Med Surg Social Fam HX - Past Medical History Source: obtained from family (castration resis), other (Castration resistent prostate cancer) Medical history: arthritis, cancer, COPD, hyperlipidemia, hypertension, malignancy, other Psychiatric history: no psych history - Social History Smoking Status: Never smoker Smokeless Tobacco Status: No Alcohol use: none Drug use: none Medications and Allergies Acetaminophen w/Cod 300-30 mg [Tylenol w/Codeine #3] 1 tab PO HS 01/31/17 [ History] Albuterol Sulfate [Proair Hfa] 2 puff IH Q4H PRN 01/31/17 [History] Aspirin [Lo-Dose Aspirin EC] 81 mg PO DAILY 01/31/17 [History] Beclomethasone Diprop 80mcg [Qvar 80 mcg] 1 puff IH BID 01/31/17 [History] Bicalutamide [Casodex] 50 mg PO DAILY 01/31/17 [History] Calcium Carbonate/Vitamin D3 [Calcium 600-Vit D3 200 Tablet] 1 tab PO DAILY 07/19 [History] Cetirizine HCl [All Day Allergy] 10 mg PO DAILY 01/31/17 [History] Cholecalciferol (D-3) [Vitamin D] 1,000 unit PO DAILY 01/31/17 [History] Diltiazem HCl [Diltiazem 24Hr Cd] 180 mg PO DAILY 01/31/17 [History] Flaxseed Oil [Wadley-3 Flaxseed Oil] 1,000 mg PO DAILY 01/31/17 [History] Fluticasone Propionate Nasal [Flonase] 1 spray NS BID 01/31/17 [History] LORazepam [Ativan] 0.5 mg PO BID 01/31/17 [History] Latanoprost [Xalatan] 1 drop OP QPM 01/31/17 [History] Levothyroxine [Synthroid] 75 mcg PO 0630 01/31/17 [History] Multivitamin [Multi-Day Vitamins] 1 tab PO DAILY 01/31/17 [History] Wadley-3/Dha/Epa/Fish Oil [Fish Oil 500 mg Softgel] 500 mg PO DAILY 01/31/17 [ History] Omeprazole [PriLOSEC] 20 mg PO DAILY 01/31/17 [History] Simvastatin [Zocor] 20 mg PO HS 01/31/17 [History] Tamsulosin [Flomax] 0.4 mg PO DAILY 01/31/17 [History] Trospium Chloride 20 mg PO BID 01/31/17 [History] Ubidecarenone/Vit E Acetate [Co Q-10 100 mg Softgel] 100 mg PO DAILY 01/31/17 [ History] Allergies No Known Allergies Allergy (Verified 01/30/17 20:24) Constitutional: Present: fatigue, lethargy, malaise, weakness Eyes: Absent: discharge Ears: Present: as per HPI Nose, mouth and throat: Present: as per HPI Cardiovascular: Present: edema, irregular heart rhythm. Absent: orthopnea Respiratory: Absent: cough, hemoptysis, excessive phlegm production Gastrointestinal: Present: hematemesis. Absent: nausea Genitourinary: urinary incontinence Musculoskeletal: Present: arthralgias, back pain Neurological: Present: memory loss Psychiatric: Present: memory loss Hematologic/Lymphatic: Present: as per HPI Oncology - Exam - Constitutional Vitals: Temp Pulse Resp BP Pulse Ox 98.3 F 86 19 128/52 95 02/03/17 11:25 02/03/17 13:00 02/03/17 11:25 02/03/17 13:00 02/03/17 11:25 - Head Head exam: Present: normal inspection - ENT ENT exam: Present: normal exam - Neck Neck exam: Present: normal inspection - Respiratory Respiratory exam: Present: CTAB - Cardiovascular Cardiovascular exam: Present: RRR - GI/Abdominal GI/Abdominal exam: Present: normal bowel sounds. Absent: mass, rebound, tenderness - Extremities Exam Extremities exam: Present: pedal edema - Back Exam Back exam: Absent: paraspinal tenderness, vertebral tenderness - Neurological Exam Neurological exam: Present: oriented X3 - Psychiatric Additional comments: mildly lethargic - Skin Skin exam: Present: normal color Oncology - Results - Labs Labs: Short CBC 02/03/17 Range/Units 05:58 WBC 7.9 (4.3-11.1) K/mcL Hgb 8.4 L (12.9-16.9) g/dL Hct 26.6 L (37.5-50.1) % Plt Count 62 L (140-400) K/mcL Neutrophils # 4.6 (1.6-8.9) K/mcL BMP 02/03/17 05:58 Sodium 139 Potassium 3.5 Chloride 109 Carbon Dioxide 22 BUN 24 Creatinine 1.03 Glucose 95 Calcium 8.3 L Consult Discharge Plan - Plan Referrals: Raúl Owusu MD [Primary Care Provider] - 02/07/17 1:15 pm ()
[2017-02-03] MEDS: Latanoprost 2.5 ML BOTTLE BOTH EYES SCH (16:11)
[2017-02-03] MEDS: Ondansetron 4 MG/2 ML VIAL IVP PRN (22:07)
[2017-02-03] MEDS: Beclomethasone 80mcg MDI IH SCH (22:52)
[2017-02-03] MEDS: Fluticasone Propionate Nasal 50 MCG/SPRAY BOTTLE NS SCH (23:13)
[2017-02-04 04:11] LABS: Red Blood Count 3.11 M/mcL (4.19-5.50)
[2017-02-04] MEDS ORDERED: 0.9 % Sodium Chloride 500 ML IVC ONE (04:12)
[2017-02-04 04:13] LABS: Hematocrit 27.7 % (37.5-50.1); Immature Platelets 4.7 % (1.1-6.1); Mean Corpuscular HGB Conc 32.5 g/dL (31.6-35.5); Mean Corpuscular Hemoglobin 28.9 pg (28.0-33.3); Mean Corpuscular Volume 89.1 fL (83.0-100.0); Mean Platelet Volume 10.8 fL (9.4-12.4); Nucleated Red Blood Cells 2.6 /100 WBC (0); Red Cell Distribution Width 15.8 % (11.5-14.5)
[2017-02-04 04:17] LABS: BUN/Creatinine Ratio 22 (6-26); Blood Urea Nitrogen 21 mg/dL (8-26); Calcium 8.4 mg/dL (8.6-10.8); Carbon Dioxide 21 mEq/L (19-29); Chloride 106 mEq/L (98-109); Glucose 96 mg/dL (70-99); Magnesium 1.4 mg/dL (1.6-2.6); Osmolality,Calculated 289 (280-300); Potassium 3.3 mEq/L (3.5-4.5); Sodium 138 mEq/L (136-145); eGFR For African Americans > 60 (> 60); eGFR For Non-African Americans > 60 (> 60)
[2017-02-04 04:27] LABS: Monocytes # 0.6 K/mcL (0.0-1.3); Platelet Count 57 K/mcL (140-400)
[2017-02-04] MEDS: Ondansetron 4 MG/2 ML VIAL IVP PRN ×2 (06:28→15:06)
[2017-02-04 07:14] LABS: Lymphocytes # 0.8 K/mcL (0.6-4.6); Neutrophils # 6.7 K/mcL (1.6-8.9)
[2017-02-04 07:15] LABS: Large Platelets Present (Not Present); Platelet Estimate Decreased (Normal); Polychromasia 1+ (Not Present); Toxic Granulation Present (Not Present)
[2017-02-04] MEDS: Beclomethasone 80mcg MDI IH SCH ×2 (08:12→22:24)
[2017-02-04] MEDS: *HR* Promethazine 25 MG/ML VIAL IVP PRN ×2 (09:16→20:56)
--- NOTE | 2017-02-04 09:44 | Oncology Inp Progress Note ---
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 Reese's condition remains concerning. I informed his that his CBC shows persistent immature WBC, including blasts, that certainly is concerning for AML, MDS or severe metastatic involvement of his bone marrow. She is aware that this conditions are life threatening. She elected against having a bone marrow biopsy, because even if he gets diagnosed with AML, MDS or progression of his prostate cancer, she would not favor to start any treatment that could be associated with significant side effects, including chemotherapy. She is leaning toward the option of hospice, but still wonders whether his imaging could be of value determining if his prostate cancer has progressed. After discussion, we decided to postponse in completing his CT scans (C/A/P ) for until, until his conditions is reassessed in AM. If his conditions remains poor ( as unfortunately is the more likely possibility), then we would hold off on further imaging and would suggest to request a hospice evaluation. She would like to await until tomorrow to see if there is some improvement. If not improvement, she would be interested in arranging for home hospice, with the support of home nursing service. -Please resume bicalutamide 50 mg PO daily. -Please order serum testosterone, PSA. As discussed previously if above work up is suggestive of castration resistant prostate cancer, I would consider to start palliative therapy with Ketoconazole in view of his very poor PS. RECOMMENDATIONS: - Hold off on CT chest/abdomen/pelvis for now - Hold off on Whole body bone scan - Check Serum PSA - Check Serum testosterone. - Check SPEP, UPEP, Free light chains in serum (FLC), serum immunofixatation ( SIFE), haptoglobin, LDH - Please obtain official report from [place] for Bone scan ( completed in mid 2016). - Palliative care consult. (2) Thrombocytopenia Current Visit: Yes Status: Acute Assessment and plan: As described above, differential diagnosis included drug related, ITP, metastatic bone marrow involvement from prostate cancer or another malignancy such as MDS/AML, or multiple myeloma. - As per our discussion, bone marrow biopsy was declined. - Continue supportive management. check CBC daily, transfuse for platelet count less than 20K (3) Upper GI bleed Current Visit: Yes Status: Acute Assessment and plan: GI on board. s/p EGD that revealed gastritis. - Management as per primary team. Oncology: Subj Interval history: Chief complaint: poor sleep. Mr. Nunez was seen with his at bedside. She reports that he had poor sleep last night, still sleeping at the time of the visit, but woke up when called by name and followed commands. he seemed lethargic even after walking up. His reports that he has been mildly lethargic for a couple of weeks.I reviewed his recent medications with his nurse. he received ativan last night. His blood counts revealed persistent blasts and other immature forms. His platelet count is trending down. He has not experienced bleeding events. During the visit his expressed his final decision against having a bone marrow biopsy in view that even if he has an hematologic malignancy, more likely he would not be a candidate to cancer related therapy in that regard. She reports that the last time he ambulated was a couple of days prior to admission, when he ambulated with the assistance of a walker. She used to take care at home by herself. He did not complaint of pain during the visit. 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 Social: He lives at home with his . Family history: no family history of hematologic malignancies. ROS: Negative for bleeding events, easy bruising Negative for pain. Positive for mental status changes, lethargy. Unable to ambulate Poor appetite. - Constitutional Vitals: Vital Signs Temp Pulse Resp BP Pulse Ox 02/04/17 08:12 19 91 02/04/17 07:55 98.2 F 112 22 131/75 95 02/04/17 04:48 98.0 F 110 141/67 93 02/04/17 00:40 98.8 F 110 22 133/63 91 02/03/17 22:52 20 90 02/03/17 19:48 98.2 F 101 17 130/68 94 02/03/17 15:07 87 02/03/17 15:06 98.1 F 94 20 116/56 95 02/03/17 13:00 86 128/52 02/03/17 12:30 77 126/51 02/03/17 12:20 88 125/58 02/03/17 12:05 84 115/51 02/03/17 11:50 79 121/55 02/03/17 11:35 87 120/58 02/03/17 11:25 98.3 F 85 19 103/45 95 02/03/17 11:20 84 103/45 02/03/17 10:56 87 02/03/17 10:50 81 134/61 02/03/17 10:35 81 125/58 02/03/17 10:20 82 114/50 02/03/17 10:16 85 18 111/50 92 Intake and Output 02/03/17 02/04/17 02/04/17 23:59 07:59 15:59 Intake Total 120 / 120 Output Total 1350 / 1350 850 / 850 Balance -1350 / -1350 -850 / -850 120 / 120 Intake: Oral 120 / 120 Output: Catheter 1350 / 1350 850 / 850 Other: Meal Dinner Breakfast Percent of Meal Consumed 5% 25% Stool Size Smear Stool Color Brown Weight 90.5 kg Patient Weight 02/04/17 23:59 Weight 90.5 kg - Head Head exam: Present: normal inspection - ENT ENT exam: Present: normal exam - Neck Neck exam: Present: normal inspection. Absent: tenderness - Respiratory Respiratory exam: Present: CTAB - Cardiovascular Cardiovascular exam: Present: +S1, +S2 - GI/Abdominal GI/Abdominal exam: Present: normal bowel sounds. Absent: organomegaly, pulsatile mass, rebound, rigid - Extremities Exam Extremities exam: Present: normal inspection - Back Exam Back exam: Absent: paraspinal tenderness - Neurological Exam Neurological exam: Present: altered Additional comments: Lethargic, but wake up when called by name and followed basic commands. No focal weakness noted in upper or lower extremities. no grossly cranial nerve abnormality Oncology: Obj Data - Labs CBC & Chem 7: 02/04/17 03:40 02/04/17 03:40 Labs: Laboratory Results - last 24 hr 01/31/17 02/03/17 02/03/17 14:40 05:58 11:27 WBC RBC Hgb Hct MCV MCH MCHC RDW Plt Count MPV Seg Neutrophils % 40.0 Band Neutrophils % 18.0 H Lymphocytes % 20.0 Monocytes % Eosinophils % 1.0 Metamyelocytes % 8.0 H Myelocytes % 8.0 H Promyelocytes % 4.0 H Blast Cells % 1.0 H Neutrophils # 4.6 Lymphocytes # 1.6 Monocytes # Eosinophils # 0.1 Nucleated RBCs/100 WBC Toxic Granulation Present A Dohle Bodies Present A Platelet Estimate Decreased L Large Platelets Immature Plt Fraction Polychromasia 1+ A Sodium Potassium Chloride Carbon Dioxide BUN Creatinine Est GFR ( Amer) Est GFR (Non-Af Amer) BUN/Creatinine Ratio Glucose POC Glucose 110 H Calculated Osmolality Calcium Magnesium Myeloperoxidase Ab 10 Serine Protease 3 Ab 0 02/04/17 02/04/17 03:40 03:40 WBC 10.5 RBC 3.11 L Hgb 9.0 L Hct 27.7 L MCV 89.1 MCH 28.9 MCHC 32.5 RDW 15.8 H Plt Count 57 L MPV 10.8 Seg Neutrophils % 34.0 Band Neutrophils % 30.0 H Lymphocytes % 8.0 Monocytes % 6.0 Eosinophils % Metamyelocytes % 10.0 H Myelocytes % 10.0 H Promyelocytes % 2.0 H Blast Cells % Neutrophils # 6.7 Lymphocytes # 0.8 Monocytes # 0.6 Eosinophils # Nucleated RBCs/100 WBC 2.6 H Toxic Granulation Present A Dohle Bodies Platelet Estimate Decreased L Large Platelets Present A Immature Plt Fraction 4.7 Polychromasia 1+ A Sodium 138 Potassium 3.3 L Chloride 106 Carbon Dioxide 21 BUN 21 Creatinine 0.94 Est GFR ( Amer) > 60 Est GFR (Non-Af Amer) > 60 BUN/Creatinine Ratio 22 Glucose 96 POC Glucose Calculated Osmolality 289 Calcium 8.4 L Magnesium 1.4 L Myeloperoxidase Ab Serine Protease 3 Ab - ABG Interpretation ABG results: PT/INR, D-dimer PT 16.5 Seconds (9.4-12.1) H 02/01/17 04:03 Consult Discharge Plan - Plan Referrals: Raúl Owusu MD [Primary Care Provider] - 02/07/17 1:15 pm ()
[2017-02-04] MEDS: *HR* Acetaminophen w/Cod 300-30 mg 1 TAB TABLET PO PRN (09:49)
[2017-02-04] MEDS: Cholecalciferol (D-3) 1,000 UNIT TABLET PO SCH (09:49)
[2017-02-04] MEDS: Diltiazem CD (24hr) 240 MG CAPSULE PO SCH (09:49)
[2017-02-04] MEDS: Loratadine 10 MG TABLET PO SCH (09:50)
[2017-02-04] MEDS: Fluticasone Propionate Nasal 50 MCG/SPRAY BOTTLE NS SCH ×2 (09:57→20:26)
--- NOTE | 2017-02-04 13:55 | Internal Med Progress Note ---
Date of Encounter: 02/04/17 Time of Encounter: 13:53 - Assessment and plan (1) Anemia Current Visit: Yes Status: Acute Assessment and plan: His Anemia and severe thrombocytopenia could due to MDS / Leukemia Also due to prostate metastatic disease Pt's does not want to go for bone marrow biopsy She would like to start with imaging work up first will get CT chest / abd / pelvis with IV contrast will get CT of head too s/p 2 U PRBC stable Hb now Qualifiers: Anemia type: other cause Other causes of anemia: acute posthemorrhagic Qualified Code(s): D62 - Acute posthemorrhagic anemia (2) Thrombocytopenia Current Visit: Yes Status: Acute Assessment and plan: could be due to his Prostate CA with possible mets cont close monitoring (3) Upper GI bleed Current Visit: Yes Status: Acute Assessment and plan: Hb stable at 9.0 s/p 2 U PRBC cont close monitoring of Hb / Hct s/p EGD today showed normal esophagus..mild gastritis showed Cont PO Protonix (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 Pelayo, who did mention he did have multiple osteolytic lesion from skull to ankle Heme Onc on board ordered Simpson CT scan for further eval (5) Atrial fibrillation with RVR Current Visit: Yes Status: Acute Assessment and plan: Triggered by NSTEMI and Severe anemia pt did have h/o A fib in the past Converted to NSR on 02/01/17 Now rate controlled on PO Cardizem at 240mg Card is on board 2 D Echo - LVEF normal, Indeterminate diastolic function. atypicla septal motion with BBB Held ASA / Anticoag due to GI bleed (6) Elevated troponin I level Current Visit: Yes Status: Resolved Assessment and plan: Mostly due to demand ischemia Troponins trended down Reviewed 2 D Echo Held ASA due to GI bleed No further work up needed (7) Acute respiratory failure with hypoxia Current Visit: Yes Status: Acute Assessment and plan: Due to anemia and deconditioning Reviewed CXR - mild small pleural effusion no need of Lasix now Cont him on Duoneb Q4hr KISHORE try to wean him off the O2 as he tolerates (8) Acute kidney failure Current Visit: Yes Status: Resolved Assessment and plan: due to dehydration / hypovolemia with GI bleed Improved Qualifiers: Qualified Code(s): N17.9 - Acute kidney failure, unspecified (9) Acute hyperactive delirium due to multiple etiologies Current Visit: Yes Status: Acute Assessment and plan: Multifactorial - could be due to underline dementia + Metabolic encephalopathy with NILAM / GI bleed Resolved did mention about his forget fullness in last 2-3 months . (10) DVT prophylaxis Current Visit: Yes Status: Acute Assessment and plan: SCD's only - Subjective Interval history: Mr. Nunez is a 86 year old male with hx of prostate ca on LHRH/casodex, HLN, HTN who presents with 2 days hx of coffee grounds emesis with no improving. He has apparently been gradually weaker, confused, rapidly declining in the last 2- 3 months but symptoms were more notable 2-3 weeks ago. Denied any blood thinners, NSAIDs or hx of GIB. He lives with and is highly functional at baseline. Pt was admitted here for GI bleed with Hematemesis. He also went into A fib a day after admission, which got converted in NSR in 24 hrs with Cardizem. He just came back from EGD. No acute events over night. Tolerating PO intake ok. No more vomitings / hematemeisis. He still very lethargic and weak. He is semi alert, but able to answer questions appropriately. - Constitutional Vitals: Temp Pulse Resp BP Pulse Ox 99.0 F 108 18 127/76 93 02/04/17 11:36 02/04/17 12:24 02/04/17 11:36 02/04/17 11:36 02/04/17 12:24 General appearance: Present: A&O X 3 (sedative now), answers questions appropriately - Head Head exam: Present: atraumatic, normal inspection - Neck Neck exam general surgery: Present: supple. Absent: lymphadenopathy, thyromegaly - Respiratory Respiratory exam: Present: decreased breath sounds, wheezes. Absent: rales, respiratory distress, rhonchi - Cardiovascular Cardiovascular exam: Present: RRR, +S1, +S2 - GI/Abdominal GI/Abdominal exam: Present: distended, normal bowel sounds, soft. Absent: rebound, rigid, tenderness - Extremities Exam Extremities exam: Absent: calf tenderness, pedal edema, tenderness - Psychiatric Psychiatric exam: Present: depressed Internal Medicine: Result - Labs CBC & Chem 7: 02/04/17 03:40 02/04/17 03:40 Labs: Short CBC 02/04/17 Range/Units 03:40 WBC 10.5 (4.3-11.1) K/mcL Hgb 9.0 L (12.9-16.9) g/dL Hct 27.7 L (37.5-50.1) % Plt Count 57 L (140-400) K/mcL Neutrophils # 6.7 (1.6-8.9) K/mcL BMP 02/04/17 03:40 Sodium 138 Potassium 3.3 L Chloride 106 Carbon Dioxide 21 BUN 21 Creatinine 0.94 Glucose 96 Calcium 8.4 L - ABG Interpretation ABG results: PT/INR, D-dimer PT 16.5 Seconds (9.4-12.1) H 02/01/17 04:03 - VTE Reasons for not Prescribing Prophylaxis: Medical contraindication Documentation of Mechanical Device: Graduated compression elastic hosiery Consult Discharge Plan - Plan Referrals: Raúl Owusu MD [Primary Care Provider] - 02/07/17 1:15 pm ()
[2017-02-04] MEDS ORDERED: *HR* Acetaminophen w/Cod 300-30 mg 1 TAB TABLET PO PRN (14:04)
[2017-02-04] MEDS: *HR* Morphine 2 MG/ML SYRINGE IVP PRN ×2 (15:11→22:30)
[2017-02-04] MEDS: Acetaminophen 325 MG TABLET PO PRN (16:17)
[2017-02-04] MEDS: Latanoprost 2.5 ML BOTTLE BOTH EYES SCH (18:35)
[2017-02-05] MEDS ORDERED: Morphine Oral CONC 5 MG/0.25 ML ORAL.SYG PO PRN (00:49)
[2017-02-05] MEDS ORDERED: Ondansetron ODT 4 MG TAB.RAPDIS SL PRN (00:51)
[2017-02-05 01:37] LABS: Hematocrit 25.9 % (37.5-50.1); Hemoglobin 8.2 g/dL (12.9-16.9); Immature Platelets 3.9 % (1.1-6.1); Mean Corpuscular HGB Conc 31.7 g/dL (31.6-35.5); Mean Corpuscular Hemoglobin 28.7 pg (28.0-33.3); Mean Corpuscular Volume 90.6 fL (83.0-100.0); Mean Platelet Volume 10.5 fL (9.4-12.4); Nucleated Red Blood Cells 2.9 /100 WBC (0); Red Blood Count 2.86 M/mcL (4.19-5.50); Red Cell Distribution Width 15.7 % (11.5-14.5)
[2017-02-05 01:53] LABS: Alanine Aminotransferase 37 Units/L (0-55); Albumin 2.4 g/dL (3.5-5.0); Albumin/Globulin Ratio 0.6 (1.1-2.2); Alkaline Phosphatase 1003 Units/L (38-126); Aspartate Amino Transferase 40 Units/L (5-34); BUN/Creatinine Ratio 24 (6-26); Bilirubin,Total 0.9 mg/dL (0.2-1.2); Blood Urea Nitrogen 24 mg/dL (8-26); Calcium 8.4 mg/dL (8.6-10.8); Carbon Dioxide 20 mEq/L (19-29); Chloride 106 mEq/L (98-109); Globulin 3.7 g/dL (2.4-3.5); Glucose 98 mg/dL (70-99); Magnesium 1.4 mg/dL (1.6-2.6); Osmolality,Calculated 288 (280-300); Potassium 3.3 mEq/L (3.5-4.5); Sodium 137 mEq/L (136-145); Total Protein 6.1 g/dL (6.0-8.3); eGFR For African Americans > 60 (> 60); eGFR For Non-African Americans > 60 (> 60)
[2017-02-05 02:07] LABS: Platelet Count 54 K/mcL (140-400)
[2017-02-05 02:42] LABS: Eosinophils # 0.2 K/mcL (0.0-0.6); Lymphocytes # 1.4 K/mcL (0.6-4.6); Monocytes # 0.7 K/mcL (0.0-1.3); Neutrophils # 7.5 K/mcL (1.6-8.9)
[2017-02-05 02:45] LABS: Hypersegmented Neutrophils Present (Not Present); Platelet Estimate Decreased (Normal); Toxic Granulation Present (Not Present)
[2017-02-05 02:47] LABS: Polychromasia 1+ (Not Present)
[2017-02-05] MEDS: *HR* LORazepam 0.5 MG TABLET PO PRN ×2 (03:12→13:03)
[2017-02-05 07:50] VITALS: BP 138/64
[2017-02-05] MEDS: Beclomethasone 80mcg MDI IH SCH (08:14)
--- NOTE | 2017-02-05 09:33 | Oncology Inp Progress Note ---
Date of Encounter: 02/05/17 Time of Encounter: 09:25 (1) Prostate cancer metastatic to bone Current Visit: Yes Status: Acute Assessment and plan: I reviewed the CT scan findings showing evidence of diffuse osteoblastic lesions, consistent with progression of his metastatic prostate cancer, more likely castration resistant, although serum testosteron and PSA have not been tested. I discussed the options of management, including therapy with anti androgens and androgen blockers ( abiraterone, enzalutamide), along with hormonal therapy with ketoconazole and steroids. I explained that if she elected the option of hospice/comfort care, it would not be unreasonable in view of his very poor performance status, compromised mental status ( possible dementia) with associated lethargy, signficant comorbidities ( recent associated respiratory failure, renal failure, urinary incontinence, inability to ambulate). At this time they have elected the option of hospice/comfort care. She will meet the palliative care team later today to hopefully arrange for home hospice today ( and proceed with discharge today). Mr. Reese's was explained that his medications will be adjusted to provide comfort and quality of life, but if his condition improves ( improved performance status, mental status and other co morbidities), the option to provide therapy ( with endocrine therapy, such as enzalutamide, abiraterone, ketoconazole ) may be considered ( and in that case, an outpatient oncology consult should be scheduled to assess that possibility). She expressed understanding of my recommendations. As discussed in prior notes, she declined the option to complete a bone marrow biopsy to rule out an hematologic malignancy. Above plan of care discussed with primary team. Oncology: Subj Interval history: Chief complaint: metastatic prostate cancer, abnormal CBC, lethargy. Jareth was seen with his at the bedside. No significant events overnight. He was mildly lethargic, but wake up when called by name and denied pain. He expressed satisfaction of the plans to be discharged home under hospice service. His CT scan showed evidence of disease progression, probably due to castration resisstent prostate cancer, although he did not receive the last dose of lupron. In view that he and his have opted for a comfort care approach, testosterone and PSA were not done. His CT showed pulmonary nodes, suspicious for visceral metastatic disease. CT abdomen showed not evidence of disease. There was evidence of diffuse bone involvement, but at the time of the visit his pain remains well controlled. Past medical history: - consistent with CRPC in view of CT showing diffuse bone blastic bone metastasis. Social history: reports that she has arranged with friends today for the necessary support to provide care at home. She is aware that he needs extensive support, but she is confident that she will be able to provide it with her social support. she will meet the palliative care team later today to discuss the details, enrolled in home hospice and proceed with discharge under comfort care. Review of system: Denies pain, including bone pain. No skin changes Denies shortness of breath, chest pain, shortness of breath Gonzales catheter in place for comfort in view of recent urinary incontinence. - Constitutional Vitals: Vital Signs Temp Pulse Resp BP Pulse Ox 02/05/17 08:15 18 93 02/05/17 07:46 99.1 F 102 19 138/64 91 02/05/17 04:00 98.9 F 96 16 133/69 92 02/05/17 00:00 98.1 F 94 18 131/65 95 02/04/17 22:24 20 96 02/04/17 20:11 98.2 F 87 22 129/79 92 02/04/17 18:36 93 91 02/04/17 16:23 98.6 F 100 24 154/72 89 02/04/17 14:03 94 02/04/17 12:24 108 93 02/04/17 11:36 99.0 F 109 18 127/76 93 Intake and Output 02/04/17 02/05/17 02/05/17 23:59 07:59 15:59 Intake Total 260 / 260 0 / 0 Output Total 625 / 625 600 / 600 Balance -365 / -365 -600 / -600 0 / 0 Intake: Oral 260 / 260 0 / 0 Output: Urine 625 / 625 Urethral (Gonzales) 625 / 625 Catheter 600 / 600 Other: Meal Dinner Breakfast Percent of Meal Consumed 0% 0% Stool Size Small Smear Stool Consistency formed Stool Characteristics Pasty Stool Color Brown Ezra Colored # Bowel Movements 1 Weight 90.1 kg Patient Weight 02/05/17 23:59 Weight 90.1 kg - Head Head exam: Present: normal inspection - ENT ENT exam: Present: normal exam - Respiratory Respiratory exam: Present: CTAB - Cardiovascular Cardiovascular exam: Present: +S1, +S2 - GI/Abdominal GI/Abdominal exam: Present: normal bowel sounds, soft - Extremities Exam Extremities exam: Present: normal inspection. Absent: tenderness - Back Exam Back exam: Absent: paraspinal tenderness - Psychiatric Additional comments: He remains lethargic, but wake up when called by name, answer basic questions and expressed satisfaction of plans to be discharged home today. Follow basic commands. no gross neurologic deficits. Oncology: Obj Data - Labs CBC & Chem 7: 02/05/17 01:14 02/05/17 01:14 Labs: Laboratory Results - last 24 hr 02/04/17 02/05/17 02/05/17 11:40 01:14 01:14 WBC 11.7 H RBC 2.86 L Hgb 8.2 L Hct 25.9 L MCV 90.6 MCH 28.7 MCHC 31.7 RDW 15.7 H Plt Count 54 L MPV 10.5 Seg Neutrophils % 54.0 Band Neutrophils % 10.0 H Lymphocytes % 12.0 Monocytes % 6.0 Eosinophils % 2.0 Metamyelocytes % 8.0 H Myelocytes % 2.0 H Promyelocytes % 6.0 H Neutrophils # 7.5 Lymphocytes # 1.4 Monocytes # 0.7 Eosinophils # 0.2 Nucleated RBCs/100 WBC 2.9 H Hypersegmented Neuts Present A Toxic Granulation Present A Platelet Estimate Decreased L Immature Plt Fraction 3.9 Polychromasia 1+ A Sodium 137 Potassium 3.3 L Chloride 106 Carbon Dioxide 20 BUN 24 Creatinine 1.02 Est GFR ( Amer) > 60 Est GFR (Non-Af Amer) > 60 BUN/Creatinine Ratio 24 Glucose 98 POC Glucose 104 H Calculated Osmolality 288 Calcium 8.4 L Magnesium 1.4 L Total Bilirubin 0.9 AST 40 H ALT 37 Alkaline Phosphatase 1003 H Serum Total Protein 6.1 Albumin 2.4 L Globulin 3.7 H Albumin/Globulin Ratio 0.6 L Total Testosterone 02/05/17 01:14 WBC RBC Hgb Hct MCV MCH MCHC RDW Plt Count MPV Seg Neutrophils % Band Neutrophils % Lymphocytes % Monocytes % Eosinophils % Metamyelocytes % Myelocytes % Promyelocytes % Neutrophils # Lymphocytes # Monocytes # Eosinophils # Nucleated RBCs/100 WBC Hypersegmented Neuts Toxic Granulation Platelet Estimate Immature Plt Fraction Polychromasia Sodium Potassium Chloride Carbon Dioxide BUN Creatinine Est GFR ( Amer) Est GFR (Non-Af Amer) BUN/Creatinine Ratio Glucose POC Glucose Calculated Osmolality Calcium Magnesium Total Bilirubin AST ALT Alkaline Phosphatase Serum Total Protein Albumin Globulin Albumin/Globulin Ratio Total Testosterone 39 L - Impressions Impressions Abdomen/Pelvis CT 02/04/17 13:49 IMPRESSION: No finding worrisome for intra-abdominal for metastatic disease. Moderate bilateral hydroureteronephrosis without evident obstructing lesion. Distal ureters are normal in size. Question of blood or tumor in the urinary bladder. Tiny amount of ascites present in the pelvis. Cholelithiasis and findings of chronic cholecystitis. Extensive skeletal metastatic prostate carcinoma. Very small right pleural effusion. Small left pleural effusion. Bibasilar atelectasis. D/ / Tyrese Willis MD / Tyrese Willis MD Interpreting Provider: Tyrese Willis MD Chest CT 02/04/17 13:49 IMPRESSION: Extensive osteoblastic metastasis, consistent with prostate carcinoma. 11 mm right lower lobe nodule, suspicious for metastasis in this setting. Bilateral pleural effusions and mild left basilar atelectasis. Pneumonia is a differential possibility. D/ / Jose E Connor MD / Jose E Connor MD Interpreting Provider: Jose E Connor MD Head CT 02/04/17 13:49 IMPRESSION: Sequela of chronic small vessel ischemic change. No acute intracranial abnormality seen. No evidence of metastatic disease. D/ / 02/04/2017 15:08:12 Roger Lofton MD / leo Interpreting Provider: Roger Lofton MD - ABG Interpretation ABG results: PT/INR, D-dimer PT 16.5 Seconds (9.4-12.1) H 02/01/17 04:03 Consult Discharge Plan - Plan Referrals: Raúl Owusu MD [Primary Care Provider] - 02/07/17 1:15 pm ()
[2017-02-05] MEDS: Diltiazem CD (24hr) 240 MG CAPSULE PO SCH (09:38)
[2017-02-05] MEDS: Cholecalciferol (D-3) 1,000 UNIT TABLET PO SCH (09:38)
[2017-02-05] MEDS: Fluticasone Propionate Nasal 50 MCG/SPRAY BOTTLE NS SCH (09:38)
[2017-02-05] MEDS: Loratadine 10 MG TABLET PO SCH (09:38)
--- NOTE | 2017-02-05 11:48 | Palliative - Consult Note ---
Date of Encounter: 02/05/17 Time of Encounter: 11:45 - Assessment and Plan (1) Prostate cancer metastatic to bone Current Visit: Yes Status: Acute (2) Cancer associated pain Current Visit: Yes Status: Acute Assessment and plan: Currently using Tylenol #3 through the [facility], but he also uses Morphine PRN. Discharge pain medications per hospitalist. (3) Dyspnea Current Visit: Yes Status: Acute Assessment and plan: Supplemental oxygen to be delivered via [facility]. [facility] will provide loaner tank prior to discharge. Qualifiers: Dyspnea type: unspecified Qualified Code(s): R06.00 - Dyspnea, unspecified (4) Anxiety Current Visit: Yes Status: Acute Assessment and plan: Mr. Nunez has a history of anxiety and has been taking lorazepam provided by the [facility]. Continue this upon discharge. (5) Counseling regarding advanced care planning and goals of care Current Visit: Yes Status: Acute Assessment and plan: Comfort care-code status changed to DNR-CC. Plan for discharge home with [facility] today per patient and spouse request. Referral called to on- call hospice nurse and referral information faxed. Transportation via [employer]. State DNR form completed and placed on chart and copies provided to patient/ spouse. Palliative-CN HPI - Data of Consult Patient: new to practice Consult date: 02/05/17 Requesting Physician: Komal Isbell MD Primary Care Provider: Raúl Owusu MD - Consult Narrative Palliative Care/Comfort Measures: Palliative care Reason for consult: Hospice referral History of present illness: Mr. Nunez is a 86 year old male patient initially presented to [facility] with a 2 day history of coffee-ground emesis. He has a history of metastatic prostate cancer resistant to castration. Mr. Nunez received a workup for his acute blood loss anemia/GI bleed. During his hospitalization, he also developed A. fib with RVR secondary to an NSTEMI. After consultation with the oncology team and workup revealing multiple areas of bone metastasis as well as lung metastasis, the patient and his spouse have elected to return home with hospice care. The palliative care team was consulted to assist with goals of care and hospice referral. The patient's spouse reports an overall decline in his condition over the past 3 months. His appetite has been poor, his physical and functional capacities have been limited, and he has become confused at times. 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 He served in [place] as a extractive metallurgist. He does have a service elected disability for hearing loss and anxiety. He follows with the [facility] team at the [employer] for his medical needs as well as [facility]. CC: Komal Isbell MD Past Med Surg Social Fam HX - Past Medical History Source: patient, obtained from family Medical history: arthritis, cancer, COPD, hyperlipidemia, hypertension, malignancy (prostate cancer), other Psychiatric history: anxiety - Social History Smoking Status: Never smoker Smokeless Tobacco Status: No Alcohol use: none Drug use: none Additional social history: Medical services via [facility] on the orange team. Service connection for hearing loss and anxiety (unknown percentage). Stair lift in the home as well as walker, lifted toilet seat, BSC, craftmatic adjustable bed. Medications and Allergies Acetaminophen w/Cod 300-30 mg [Tylenol w/Codeine #3] 1 tab PO HS 01/31/17 [ History] Albuterol Sulfate [Proair Hfa] 2 puff IH Q4H PRN 01/31/17 [History] Aspirin [Lo-Dose Aspirin EC] 81 mg PO DAILY 01/31/17 [History] Beclomethasone Diprop 80mcg [QVAR 80 mcg] 1 puff IH BID 01/31/17 [History] Bicalutamide [Casodex] 50 mg PO DAILY 01/31/17 [History] Calcium Carbonate/Vitamin D3 [Calcium 600-Vit D3 200 Tablet] 1 tab PO DAILY 07/19 [History] Cetirizine HCl [All Day Allergy] 10 mg PO DAILY 01/31/17 [History] Cholecalciferol (D-3) [Vitamin D] 1,000 unit PO DAILY 01/31/17 [History] Flaxseed Oil [[place]-3 Flaxseed Oil] 1,000 mg PO DAILY 01/31/17 [History] Fluticasone Propionate Nasal [Flonase] 1 spray NS BID 01/31/17 [History] Latanoprost [Xalatan] 1 drop OP QPM 01/31/17 [History] Levothyroxine [Synthroid] 75 mcg PO 0630 01/31/17 [History] Multivitamin [Multi-Day Vitamins] 1 tab PO DAILY 01/31/17 [History] [place]-3/Dha/Epa/Fish Oil [Fish Oil 500 mg Softgel] 500 mg PO DAILY 01/31/17 [ History] Tamsulosin [Flomax] 0.4 mg PO DAILY 01/31/17 [History] Trospium Chloride 20 mg PO BID 01/31/17 [History] Ubidecarenone/Vit E Acetate [Co Q-10 100 mg Softgel] 100 mg PO DAILY 01/31/17 [ History] Diltiazem CD (24hr) [Cardizem CD] 240 mg PO DAILY #30 02/05/17 [Rx] LORazepam [Ativan] 0.5 mg PO BID PRN #20 02/05/17 [Rx] Omeprazole [PriLOSEC] 20 mg PO BID #0 02/05/17 [Rx] Ondansetron ODT [Zofran ODT] 4 mg SL Q4HR PRN #30 02/05/17 [Rx] Oxycodone HCl/Acetaminophen [Percocet 5-325 mg Tablet] 1 each PO Q4H PRN #20 tablet 02/05/17 [Rx] Allergies No Known Allergies Allergy (Verified 01/30/17 20:24) - Constitutional Constitutional ROS PAL: decreased appetite - EENT Eyes: no change in vision Ears: decreased hearing - Cardiovascular Cardiovascular ROS: no chest pain, no chest pain at rest, no edema - Respiratory Respiratory: no dyspnea on exertion - Gastrointestinal Gastrointestinal: no abdominal pain, no coffee ground emesis (resolved), no constipation, no diarrhea - Genitourinary Genitourinary ROS male: hematuria, no difficulty urinating - Musculoskeletal Musculoskeletal ROS IM: muscle weakness - Integumentary ROS Integumentary: no rash, no unusual bruising - Neurological Neurological ROS: weakness (global) - Psychiatric Psychiatric general PM: anxiety Palliative Care-Exam - Constitutional Vitals: Temp Pulse Resp BP Pulse Ox 99.1 F 102 18 138/64 93 02/05/17 07:46 02/05/17 07:46 02/05/17 08:15 02/05/17 07:46 02/05/17 08:15 Exam: 86-year-old male patient, anxious, pale - Head Head Exam: Present: atraumatic - Eye Eye exam: Present: EOMI Pupils: Present: PERRL - ENT ENT exam: Present: mucous membranes dry - Respiratory Respiratory exam: Present: decreased breath sounds. Absent: accessory muscle use, respiratory distress, wheezes, tachypnea - Cardiovascular Cardiovascular exam: Present: irregular rhythm - Expanded Cardiovascular Exam Peripheral pulses: 2+: Radial (L), Radial (R) - GI/Abdominal Exam GI/Abdominal exam: Present: normal bowel sounds, soft. Absent: tenderness - Expanded GI/Abdominal Exam GI/Abdominal exam: Absent: ascites - Catheter Type: Urethral (Gonzales) - Neurological Exam Neurological exam: Present: alert, oriented X3 (Hard of hearing), strengths equal and symetr throughout (Global weakness) - Psychiatric Psychiatric exam: Present: anxious - Skin Skin exam: Present: dry, pallor, warm Internal Medicine - CN: Reslt - Labs CBC & Chem 7: 02/05/17 01:14 02/05/17 01:14 Labs: Short CBC 02/05/17 Range/Units 01:14 WBC 11.7 H (4.3-11.1) K/mcL Hgb 8.2 L (12.9-16.9) g/dL Hct 25.9 L (37.5-50.1) % Plt Count 54 L (140-400) K/mcL Neutrophils # 7.5 (1.6-8.9) K/mcL BMP 02/05/17 01:14 Sodium 137 Potassium 3.3 L Chloride 106 Carbon Dioxide 20 BUN 24 Creatinine 1.02 Glucose 98 Calcium 8.4 L Liver Function 02/05/17 Range/Units 01:14 Total Bilirubin 0.9 (0.2-1.2) mg/dL AST 40 H (5-34) Units/L ALT 37 (0-55) Units/L Alkaline Phosphatase 1003 H (38-126) Units/L Albumin 2.4 L (3.5-5.0) g/dL - ABG Interpretation ABG results: PT/INR, D-dimer PT 16.5 Seconds (9.4-12.1) H 02/01/17 04:03 - Impressions Impressions Abdomen/Pelvis CT 02/04/17 13:49 IMPRESSION: No finding worrisome for intra-abdominal for metastatic disease. Moderate bilateral hydroureteronephrosis without evident obstructing lesion. Distal ureters are normal in size. Question of blood or tumor in the urinary bladder. Tiny amount of ascites present in the pelvis. Cholelithiasis and findings of chronic cholecystitis. Extensive skeletal metastatic prostate carcinoma. Very small right pleural effusion. Small left pleural effusion. Bibasilar atelectasis. D/ / Tyrese Willis MD / Tyrese Willis MD Interpreting Provider: Tyrese Willis MD Chest CT 02/04/17 13:49 IMPRESSION: Extensive osteoblastic metastasis, consistent with prostate carcinoma. 11 mm right lower lobe nodule, suspicious for metastasis in this setting. Bilateral pleural effusions and mild left basilar atelectasis. Pneumonia is a differential possibility. D/ / Jose E Connor MD / Jose E Connor MD Interpreting Provider: Jose E Connor MD Head CT 02/04/17 13:49 IMPRESSION: Sequela of chronic small vessel ischemic change. No acute intracranial abnormality seen. No evidence of metastatic disease. D/ / 02/04/2017 15:08:12 Roger Lofton MD [facility] Interpreting Provider: Roger Lofton MD Consult Discharge Plan - Plan Instructions: Diltiazem (By mouth), Oxycodone/Acetaminophen (By mouth), Lorazepam (By mouth), Ondansetron (By mouth), Atrial Fibrillation (DC), Using Oxygen at Home (DC) Referrals: Raúl Owusu MD [Primary Care Provider] - 02/07/17 1:15 pm () Prescriptions: Ondansetron ODT [Zofran ODT] 4 mg SL Q4HR PRN #30 PRN Reason: Nausea And Vomiting Diltiazem CD (24hr) [Cardizem CD] 240 mg PO DAILY #30 LORazepam [Ativan] 0.5 mg PO BID PRN #20 PRN Reason: Anxiety Oxycodone HCl/Acetaminophen [Percocet 5-325 mg Tablet] 1 each PO Q4H PRN #20 tablet PRN Reason: Pain Palliative Quality Palliative Quality: Screen for Code Status: Yes, Screen for Goals of Care: Yes, Screen for Pain: Yes, If Pain Regimen Started, Initiate Bowel Regimen: Yes, Screen for Nausea/Vomitting: Yes Code Status: 02/04/17 15:58 CODE [Resuscitation Status: Active] [RES] Routine Comment: Resuscitation Status: DNR-Comfort Care
--- NOTE | 2017-02-05 12:03 | Discharge Summary ---
Date of Encounter: 02/05/17 Time of Encounter: 12:01 - Discharge Diagnosis (1) Anemia Priority: Primary Status: Acute Qualifiers: Anemia type: other cause Other causes of anemia: acute posthemorrhagic Qualified Code(s): D62 - Acute posthemorrhagic anemia (2) Thrombocytopenia Priority: Secondary Status: Acute (3) Upper GI bleed Priority: Primary Status: Acute (4) Prostate cancer metastatic to bone Priority: Secondary Status: Acute (5) Atrial fibrillation with RVR Priority: Secondary Status: Resolved (6) Elevated troponin I level Priority: Secondary Status: Resolved (7) Acute respiratory failure with hypoxia Priority: Primary Status: Acute (8) Acute kidney failure Priority: Secondary Status: Resolved Qualifiers: Qualified Code(s): N17.9 - Acute kidney failure, unspecified (9) Acute hyperactive delirium due to multiple etiologies Priority: Secondary Status: Acute (10) Lung metastases Priority: Secondary Status: Acute Qualifiers: Laterality: right Qualified Code(s): C78.01 - Secondary malignant neoplasm of right lung - Discharge Medications Prescriptions: Ondansetron ODT [Zofran ODT] 4 mg SL Q4HR PRN #30 PRN Reason: Nausea And Vomiting Diltiazem CD (24hr) [Cardizem CD] 240 mg PO DAILY #30 LORazepam [Ativan] 0.5 mg PO BID PRN #20 PRN Reason: Anxiety Oxycodone HCl/Acetaminophen [Percocet 5-325 mg Tablet] 1 each PO Q4H PRN #20 tablet PRN Reason: Pain Home Medications: Acetaminophen w/Cod 300-30 mg [Tylenol w/Codeine #3] 1 tab PO HS 01/31/17 [ History] Albuterol Sulfate [Proair Hfa] 2 puff IH Q4H PRN 01/31/17 [History] Aspirin [Lo-Dose Aspirin EC] 81 mg PO DAILY 01/31/17 [History] Beclomethasone Diprop 80mcg [Qvar 80 mcg] 1 puff IH BID 01/31/17 [History] Bicalutamide [Casodex] 50 mg PO DAILY 01/31/17 [History] Calcium Carbonate/Vitamin D3 [Calcium 600-Vit D3 200 Tablet] 1 tab PO DAILY 07/19 [History] Cetirizine HCl [All Day Allergy] 10 mg PO DAILY 01/31/17 [History] Cholecalciferol (D-3) [Vitamin D] 1,000 unit PO DAILY 01/31/17 [History] Flaxseed Oil [[place]-3 Flaxseed Oil] 1,000 mg PO DAILY 01/31/17 [History] Fluticasone Propionate Nasal [Flonase] 1 spray NS BID 01/31/17 [History] Latanoprost [Xalatan] 1 drop OP QPM 01/31/17 [History] Levothyroxine [Synthroid] 75 mcg PO 0630 01/31/17 [History] Multivitamin [Multi-Day Vitamins] 1 tab PO DAILY 01/31/17 [History] [place]-3/Dha/Epa/Fish Oil [Fish Oil 500 mg Softgel] 500 mg PO DAILY 01/31/17 [ History] Tamsulosin [Flomax] 0.4 mg PO DAILY 01/31/17 [History] Trospium Chloride 20 mg PO BID 01/31/17 [History] Ubidecarenone/Vit E Acetate [Co Q-10 100 mg Softgel] 100 mg PO DAILY 01/31/17 [ History] Diltiazem CD (24hr) [Cardizem CD] 240 mg PO DAILY #30 02/05/17 [Rx] LORazepam [Ativan] 0.5 mg PO BID PRN #20 02/05/17 [Rx] Omeprazole [PriLOSEC] 20 mg PO BID #0 02/05/17 [Rx] Ondansetron ODT [Zofran ODT] 4 mg SL Q4HR PRN #30 02/05/17 [Rx] Oxycodone HCl/Acetaminophen [Percocet 5-325 mg Tablet] 1 each PO Q4H PRN #20 tablet 02/05/17 [Rx] Allergies/Adverse Reactions: Allergies No Known Allergies Allergy (Verified 01/30/17 20:24) Procedures/tests Complete & Pending: Procedures Performed prior 72 hours Category Date Time Status CT abd pelvis w iv no oral [CT] Stat Cat Scan 02/04/17 13:[address] chest w con [CT] Stat Cat Scan 02/04/17 13:[address] head/brain wo con [CT] Stat Cat Scan 02/04/17 13:49 Completed ECG 12 lead ECG [ECG] Routine Y 02/04/17 05:10 Completed Date of admission: 01/30/17 23:51 Primary care physician: Raúl Owusu MD Consults: 01/30/17 23:55 Consult to Gastroenterology [CONS] Routine Consulting Provider: Gastroenterology Lindsey Reason for Consult: UGIB Call Completed: No 01/31/17 09:33 Consult to Occupational Therapy [CONS] Routine Comment: Evaluate, develop and implement POC Reason for Consult: EVAL Consult to Physical Therapy [CONS] Routine Comment: Evaluate, develop and implement POC Reason for Consult: EVAL Consult to Supervisor Counseling And Guidance [CONS] Routine Reason for SW Consult: DISCHARGE PLANNING 02/01/17 10:15 Consult to Cardiology [CONS] Stat Comment: Consulting Provider: Cardiology Lindsey Reason for Consult: Acute Afib with RVR, NSTEMI Call Completed: No 02/04/17 13:51 Consult to Palliative Care [CONS] Routine Comment: Consulting Provider: Palliative Care Lindsey Reason for Consult: Severe deocnditioning with metastatic prostate CA and possible MDS Call Completed: No - Patient Status Disposition: Hospice - Home Condition: Fair - Discharge Instructions Follow Up With: Raúl Owusu MD [Primary Care Provider] - 02/07/17 1:15 pm () - Diet and Activity Activity: wear oxygen at all times (3 lit O2) Diet: advance to your usual diet Hospital course: Mr. Nunez is a 86 year old male with hx of prostate ca on LHRH/casodex, HLN, HTN who presents with 2 days hx of coffee grounds emesis with no improving. He has apparently been gradually weaker, confused, rapidly declining in the last 2- 3 months but symptoms were more notable 2-3 weeks ago. Denied any blood thinners, NSAIDs or hx of GIB. He lives with and is highly functional at baseline. Pt was admitted here for GI bleed with Hematemesis. He also went into A fib a day after admission, which got converted in NSR in 24 hrs with Cardizem. His reate was well controlled on PO cardizem. Pt went for EGD which showed normal esophagus..mild gastritis only. Pt continued to be in delirium, acute respiratory failure with hypoxiaand severe deconditioning. His anemia and thrombocytopenia seems to be secodnary to metastatic osteoblastic lesions vs MDS. Heme Onc was consulted who recommend further imaging work up to stage his cancer. His CT of Chest / Abd / Pelvis showed bilateral hydroureteronephrosis without evident obstructing lesion, extensive skeletal metastatic prostate, extensive osteoblastic metastasis, consistent with prostate carcinoma and 11 mm right lower lobe nodule, suspicious for metastasis in this setting. At this point pt and his wanted to proceed with comfort care / palliative care. So we consulted palliative care team, who evaluated the pt and sending him home with home hospice care. - Time Spent with Patient Total time spent providing and/or coordinating discharge services: Greater than 30 minutes (Spent 45 minutes on this patient's discharge.) - Constitutional Vitals: Temp Pulse Resp BP Pulse Ox 99.1 F 102 18 138/64 93 02/05/17 07:46 02/05/17 07:46 02/05/17 08:15 02/05/17 07:46 02/05/17 08:15 General appearance: Present: A&O X 3 (sedative now), answers questions appropriately - Head Head exam: Present: atraumatic, normal inspection - Neck Neck exam general surgery: Present: supple - Respiratory Respiratory exam: Present: decreased breath sounds, rales (mild), respiratory distress, wheezes. Absent: rhonchi - Cardiovascular Cardiovascular exam: Present: RRR, +S1, +S2. Absent: systolic murmur - GI/Abdominal GI/Abdominal exam: Present: normal bowel sounds, soft. Absent: distended, guarding, rebound, rigid, tenderness - Extremities Exam Extremities exam: Absent: calf tenderness, pedal edema, tenderness - Neurological Exam Neurological exam: Present: alert, oriented X3 - Psychiatric Psychiatric exam: Present: depressed - VTE Reasons for not Prescribing Prophylaxis: Medical contraindication Documentation of Mechanical Device: Graduated compression elastic hosiery
[2017-02-05] MEDS: Acetaminophen 325 MG TABLET PO PRN (13:03)
--- NOTE | 2017-02-06 15:10 | Electrocardiograph Report ---
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
== END 2017-02-05 13:17 | disposition hospice, home (50) | DRG 377 ==
LOC: 2NNU 20:15 → EMEROO 20:15 → 2NNU 23:40
PROVIDERS: ADMIT Internal Medicine; ATTEND Internal Medicine